=== PATIENT | female | born 1970 | race Caucasian/White ===

== ENCOUNTER 2021-11-27 11:43 | Emergency (ER) | payer BC, SELFPAY ==
--- NOTE | 2021-11-27 11:56 | CT_ITS ---
FINAL REPORT CLINICAL HISTORY: abdominal pain FINDINGS: Axial CT images of the abdomen and pelvis were obtained without intravenous contrast. Coronal reformatted images were also obtained.This study was performed with techniques to keep radiation doses as low as reasonably achievable (ALARA). Individualized dose reduction techniques using automated exposure control or adjustment of mA and/or kV according to the patient's size were employed. Abdomen: There is mild bibasilar atelectasis. The gallbladder is present. There is no evidence of renal stone or hydronephrosis. 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 The liver, spleen and pancreas have an unremarkable, unenhanced appearance. No mass or adenopathy is seen. No inflammatory process is identified. Pelvis: Images of the pelvis reveal no evidence of ureteral dilation or ureteral stone.No mass or abnormal fluid collection is identified. The appendix is normal. IMPRESSION: No acute inflammatory process. Reviewed, Interpreted and Dictated by Aditya Oseguera III, MD Transcribed by Ana Lobo Authenticated and [facility]
[2021-11-27 12:18] VITALS: BP 119/95; PULSE 59; RESP 18; TEMP 36.7; O2SAT 100; BMI 40.0
[2021-11-27 12:26] LABS: Basophils # 0.2 K/mm3 (0-0.2); Basophils % 1.8 % (0.1-2.0); Eosinophils # 0.1 K/mm3 (0.0-0.4); Eosinophils % 0.9 % (0.1-12.0); Hematocrit 37.9 % (37.0-47.0); Hemoglobin 12.4 g/dL (12.2-16.2); Lymphocytes # 2.4 K/mm3 (0.7-4.5); Lymphocytes % 25.8 % (10-50); Mean Corpuscular HGB Conc 32.7 g/dL (31.8-35.4); Mean Corpuscular Hemoglobin 29.9 pg (27.0-31.2); Mean Corpuscular Volume 91.3 fl (81-99); Mean Platelet Volume 7.5 fl (7.4-10.4); Monocytes # 0.4 K/mm3 (0.1-1.0); Monocytes % 4.6 % (1.7-9.3); Neutrophils # 6.1 K/mm3 (1.8-7.8); Neutrophils % 66.9 % (37.0-80.0); Platelet Count 372 K/mm3 (142-424); Red Blood Count 4.15 M/mm3 (4.20-5.40); Red Cell Distribution Width 13.4 % (11.5-17.5); White Blood Count 9.2 K/mm3 (4.8-10.8)
--- NOTE | 2021-11-27 12:26 | PC.NURSE ---
Pt to radiology
[2021-11-27 12:30] LABS: Chloride 108 mmol/L (98-107)
[2021-11-27 12:31] LABS: Potassium 3.6 mmoL/L (3.5-5.1); Sodium 141 mmol/L (136-145)
[2021-11-27 12:33] LABS: Alanine Aminotransferase 29 U/L (12-78); Aspartate Amino Transferase 32 U/L (14-36); Blood Urea Nitrogen 16 mg/dl (7-17); Creatinine Clearance Estimated 123 mL/min (50-200); Estimated Glomerular Filt Rate 75 ml/min (>60); GFR (African American) 91 ML/MIN (>60)
[2021-11-27 12:34] LABS: Albumin Level 3.9 g/dl (3.5-5.0); Albumin/Globulin Ratio 1.3 (1.1-1.8); Alkaline Phosphatase 130 U/L (38-126); Anion Gap 6.6 mEq/L (5-15); Bilirubin,Total 0.5 mg/dl (0.2-1.3); Calcium 8.6 mg/dl (8.4-10.2); Carbon Dioxide 30 mmol/L (22.0-30.0); Globulin 3.1 g/dL (1.3-3.2); Glucose 100 mg/dl (74-100); Lipase 86 U/L (23-300)
--- NOTE | 2021-11-27 12:43 | PC.NURSE ---
pt to restroom to attempt to collect urine speciment
[2021-11-27 12:55] LABS: Microscopic, Urine URINE MICROSCOPIC (MICROSCOPIC)
[2021-11-27 12:58] LABS: Appearance,Urine SL CLOUDY (Clear); Bilirubin,Urine Negative (Negative); Blood, Urine Negative (Negative); Color,Urine DK YELLOW (Yellow); Glucose,Urine (UA) Negative (Negative); Ketones,Urine Negative (Negative); Leukocyte Esterase,Urine Negative (Negative); Nitrate,Urine Negative (Negative); PH,Urine 6.5 (5.0-8.5); Protein,Urine Negative (Negative)
[2021-11-27 13:01] VITALS: BP 140/72; PULSE 53; O2SAT 98
--- NOTE | 2021-11-27 13:04 | HMH.EDABDPAI ---
ED Disposition Clinical Impression: PUD (peptic ulcer disease) Disposition: Home, Self-Care Condition on Discharge: Good Instructions: DI for Acute Abdominal Pain Prescriptions: Promethazine HCl [Phenergan 25mg tab] 25 mg PO BID #12 tab Transmission Status: Pending to [facility] [id number] Referrals: Diana Michelle APRN [Primary Care Provider] - Filippo Garvey MD [Staff Physician] - - Critical Care Critical Care Time: No Attestation: On 11/27/21, the high probability of a clinically significant, sudden or life threatening deterioration of the following system(s) required my full and direct attention, intervention and personal management. The time I documented below is in addition to time spent performing reported procedures but includes the following listed in this critical care notation. Medical Decision Making - Medical Records Medical records reviewed: Yes: I reviewed the patient's medical records. - [place] Inquiry Pt receiving controlled substance: Yes [place] was queried for this patient: No Reason not queried -: Tex system downtime Risks and benefits of using a controlled substance: were discussed with pt by me Vital Signs: 11/27/21 12:18 Temperature 98.1 F Temperature Source Oral Pulse Rate [Left Radial] 59 L Respiratory Rate 18 Blood Pressure [Right Arm] 119/95 H Blood Pressure Mean [Right Arm] 103 Blood Pressure Source [Right Arm] Automatic Cuff Blood Pressure Position [Right Arm] Sitting 02 Sat by Pulse Oximetry 100 Oxygen Delivery Method Room Air - Lab Data Lab Results 11/27/21 12:15: WBC 9.2, RBC 4.15 L, Hgb 12.4, Hct 37.9, MCV 91.3, MCH 29.9, MCHC 32.7, RDW 13.4, Plt Count 372, MPV 7.5, Neut % (Auto) 66.9, Lymph % (Auto) 25.8, [place] % (Auto) 4.6, Eos % (Auto) 0.9, Baso % (Auto) 1.8, Neut # (Auto) 6.1, Lymph # (Auto) 2.4, [place] # (Auto) 0.4, Eos # (Auto) 0.1, Baso # (Auto) 0.2 11/27/21 12:15: Sodium 141, Potassium 3.6, Chloride 108 H, Carbon Dioxide 30, Anion Gap 6.6, BUN 16, Creatinine 0.80, Estimated Creat Clear 123, Estimated GFR 75, Est GFR ( Amer) 91, Glucose 100, Calcium 8.6, Total Bilirubin 0.5, AST 32, ALT 29, Alkaline Phosphatase 130 H, Total Protein 7.0, Albumin 3.9, Globulin 3.1, Albumin/Globulin Ratio 1.3, Lipase 86 11/27/21 12:41: Urine Color Dk yellow, Urine Appearance Sl cloudy, Urine pH 6.5, Ur Specific [place] 1.020, Urine Protein Negative, Urine Glucose (UA) Negative, Urine Ketones Negative, Urine Blood Negative, Urine Nitrate Negative, Urine Bilirubin Negative, Urine Urobilinogen 2.0, Ur Leukocyte Esterase Negative, Urine RBC None, Urine WBC None, Ur Squamous Epith Cells Occasional, Urine Bacteria Trace, Urine Mucus 1+ Result diagrams: 11/27/21 12:15 11/27/21 12:15 Orders (Tests/Meds): ED MEDICATIONS Discontinued Medications Generic Name Dose Route Start Last Admin Trade Name Cristina PRN Reason Stop Dose Admin Sodium Chloride 1,000 mls @ 999 mls/hr 11/27/21 12:00 11/27/21 12:22 Sod Chlor 0.9% 1000ml Bag IV 11/27/21 13:00 999 mls/hr .Q1H1M GUS Administration Morphine Sulfate 4 mg 11/27/21 11:55 11/27/21 12:22 Morphine 4mg/Ml Syringe IV 11/27/21 11:56 4 mg ONCE ONE Administration Ondansetron HCl 4 mg 11/27/21 11:55 11/27/21 12:22 Ondansetron 4mg/2ml Vial IV 11/27/21 11:56 4 mg ONCE ONE Administration - CT Data CT Scan: Abdomen, Pelvis Time Received: 13:[address] Reviewed: Yes: I have reviewed the patient's CT results, I have viewed the radiologist's interpretation Preliminary Findings: Normal/NAD - Reevaluation(s) Time: 13:49 Reevaluation #1: On reevaluation, the patient is feeling much better. Repeat abdominal examination is benign. There is no evidence of acute abdomen or masses. The patient is tolerating oral intake without significant difficulty. Patient has no evidence of AAA. Patient does need repeat abdominal examination in 24 hours by PCP or return to the emergency department. Patient w
[2021-11-27 13:18] LABS: Bacteria,Urine Trace /lpf; Mucus,Urine 1+ /lpf; Squamous Epithelial Cell,Urine Occasional #/hpf (0-5)
[2021-11-27 13:30] VITALS: BP 147/79; PULSE 50; O2SAT 98
[2021-11-27 14:06] VITALS: BP 147/79; PULSE 55; RESP 20; TEMP 36.7; O2SAT 99
== END 2021-11-27 14:07 | disposition home or self-care (01) ==
PROVIDERS: Emergency Provider Emergency Medicine; PCP Nurse Practitioner Family
DX: K27.9 Peptic ulcer, site unspecified, unspecified as acute or chronic, without hemorrhage or perforation (principal)
CPT/HCPCS: 74176; 80053; 81001; 83690; 85025; 96365; 96375; 99284; J2405

== ENCOUNTER 2024-05-18 10:35 | Emergency (ER) | payer OTHER, SELFPAY ==
[2024-05-18 10:36] VITALS: BP 142/78; PULSE 60; RESP 20; TEMP 36.6; O2SAT 100; BMI 39.0
--- NOTE | 2024-05-18 10:38 | ECG_ITS ---
APPROVED REPORT Exam: Resting ECG HR:59 bpm ECG Measurements Heart Rate 59 AXES MN 138 P 53 QRSd 96 QRS 35 QT 385 T 33 QTc 385 Conclusion SINUS BRADYCARDIA BORDERLINE ECG Electronically signed by : JUANA UGALDE, 05/18/2024 15:01:54
[2024-05-18 10:47] VITALS: BP 147/78; PULSE 60; RESP 19; O2SAT 97
[2024-05-18 11:01] VITALS: BP 137/77; PULSE 60; RESP 17; O2SAT 99
--- NOTE | 2024-05-18 11:04 | XR_ITS ---
PROCEDURE INFORMATION: Exam: XR Chest Exam date and time: 05/18/2024 11:10 AM Age: 54 years old Clinical indication: Shortness of breath and other: Chest pain; Additional info: Chest pain, SOA TECHNIQUE: Imaging protocol: Radiologic exam of the chest. Views: 1 view. COMPARISON: CT ABDOMEN PELVIS WO CON 11/27/2021 12:24 PM FINDINGS: Lungs: Lungs are well aerated without a focal area of consolidation. Pleural spaces: Unremarkable. No pleural effusion. No pneumothorax. Heart/Mediastinum: The cardiac silhouette appears enlarged, some of which is magnification related to the AP projection. Bones/joints: Unremarkable. IMPRESSION: Lungs are well aerated without a focal area of consolidation.
--- NOTE | 2024-05-18 11:12 | HMH.EDCP ---
Discharge Plan Disposition Chief Complaint: Chest Pain Prescriptions Prescriptions: New lidocaine 5 % adhesive patch,medicated 1 patch topical DAILY Qty: 15 0RF Rx Instructions: leave on most painful area for up to 12 hrs No Action promethazine 25 MG tablet 25 mg PO BID Qty: 12 0RF Referrals Follow up/Referrals: Neela Castillo APRN [Primary Care Provider] - See instructions Activity Restrictions/Add. Instructions Additional Instructions/Restrictions: At this time it was felt you are safe to be discharged home. If new or worsening symptoms please do not hesitate to return the emergency department. For pain control please take Tylenol 1000 mg and ibuprofen 600 mg every 6 hours as needed with food over the next few days. You complete your lidocaine patch over the area of your chest that hurts which can also help. As discussed if your symptoms are still present after 15 to 20 days please follow-up with your family doctor for continued evaluation. Clinical Impressions Clinical Impression: Acute bronchitis, viral, Chest pain Print Language Print Language: Cuban Discharge ED Provider: Regis Tijerina [facility] General Chief Complaint: Chest Pain Stated Complaint: chest pain Time Seen by Provider: 05/18/24 10:50 History of Present Illness HPI narrative: Patient is a 54-year-old female with no chronic pulmonary comorbidities who presents emergency department for evaluation of shortness of breath and cough. History is obtained by patient at bedside. Over the last 4 days patient has had cough, hoarse voice and shortness of breath. There is chest pain upon deep inspiration. She presented to PCP who diagnosed her with bronchitis and gave her a course of steroids for which her symptoms have been refractory. Adequate p.o. intake and urine output. No other acute complaints at this time. Related Data Previous Rx's ?Medication ?Instructions ?Recorded promethazine 25 mg tablet 25 mg PO BID #12 tabs 11/27/21 lidocaine 5 % topical patch 1 patch topical DAILY muscle pain 05/18/24 #15 ea Allergies Allergy/AdvReac Type Severity Reaction Status Date / Time No Known Allergies Allergy Unknown Uncoded 06/15/17 15:23 [facility] Disclaimer: The information contained in this section may have been updated after the patient was seen, as this information can be updated by other users. Social History Smoking Status: Never smoker alcohol intake: never current occupational status: other Other Medical History Have you received the Flu Vaccine for this season: Yes Have you received the Pneumonia Vaccine: Yes ROS Obtained: Yes Systems reviewed as appropriate & no additional complaints except as documented Physical Exam General General appearance: alert, in no apparent distress and other (Hoarse voice) Head Head exam: atraumatic and normocephalic Eye Eye exam: Present EOMI ENT ENT exam: Present normal oropharynx and mucous membranes moist Neck Neck exam: Present normal inspection Chest Chest inspection: Present normal inspection and symmetric chest wall rise Respiratory Respiratory exam: Present normal lung sounds bilaterally; Absent respiratory distress, wheezes or accessory muscle use Cardiovascular Cardiovascular exam: Present regular rate and normal rhythm Abdominal Exam Abdominal exam: Present soft; Absent tenderness Extremities Exam Extremities exam: Present normal inspection Neurological Exam Neurological exam: Present alert Psychiatric Psychiatric exam: Present normal affect Skin Skin exam: Present warm and dry HEART Score HEART Score HEART Score assessment performed?: Yes History (anamnesis): Slightly suspicious ECG: Normal Age: 45-65 years Risk factors: 1-2 risk factors Troponin: </= normal limit HEART Score: 2 Critical Care Critical Care Time Critical Care Time: No Medical Decision Making [place] Inquiry Pt receiving controlled substance: No Vital Signs Vital Signs: 05/18/24 10:36 05/18/24 10:36 05/18/24 10:47 Temperature 97.9 F Temperature Source Oral Pulse Rate 60 60 Pulse Rate [Right] 60 Respiratory Rate 20 19 Blood Pressure 147/78 H Blood Pressure [Right Arm] 142/78 H Blood Pressure Mean [Right Arm] 99 Blood Pressure Source [Right Arm] Automatic Cuff 02 Sat by Pulse Oximetry 100 97 Oxygen Delivery Method Room Air 05/18/24 11:01 Temperature Temperature Source Pulse Rate 60 Pulse Rate [Right] Respiratory Rate 17 Blood Pressure 137/77 Blood Pressure [Right Arm] Blood Pressure Mean [Right Arm] Blood Pressure Source [Right Arm] 02 Sat by Pulse Oximetry 99 Oxygen Delivery Method Lab Data Labs: Lab Results 05/18/24 10:45: WBC 12.0 H, RBC 4.53, Hgb 13.4, Hct 40.1, MCV 88.5, MCH 29.5, MCHC 33.3, RDW 13.4, Plt Count 380, MPV 7.5, Neut % (Auto) 70.1, Lymph % (Auto) 22.4, [place] % (Auto) 4.6, Eos % (Auto) 2.4, Baso % (Auto) 0.5, Neut # (Auto) 8.4 H, Lymph # (Auto) 2.7, [place] # (Auto) 0.6, Eos # (Auto) 0.3, Baso # (Auto) 0.1, D-Dimer 0.59 H, Sodium 140, Potassium 4.5, Chloride 105, Carbon Dioxide 30, Anion Gap 9.5, BUN 22 H, Creatinine 0.80, Estimated Creat Clear 112, Estimated GFR 74, Est GFR ( Amer) 90, Glucose 88, Calcium 8.7, Total Bilirubin 0.7, AST 25, ALT 16, Alkaline Phosphatase 146 H, Troponin I < 0.01, NT-Pro-B Natriuret Pep 75.6, Total Protein 6.9, Albumin 3.8, Globulin 3.1, Albumin/Globulin Ratio 1.2 05/18/24 11:08: VBG pH 7.32, VBG pCO2 57.5 H, VBG pO2 37.8, VBG HCO3 29.1, VBG Total CO2 30.9 H, VBG O2 Saturation 69.9, VBG Base Excess 3.0 H, VBG Lactic Acid 1.3 05/18/24 10:45 05/18/24 10:45 Response Orders (Tests/Meds): ORDERS Category Date Time Status XR chest portable Stat Exams 05/18/24 11:04 Taken BNP [NT Pro Brain Natriuretic Pep.] Stat Lab 05/18/24 10:45 Completed Complete Blood Count Auto Diff Stat Lab 05/18/24 10:45 Completed Comprehensive Metabolic Panel Stat Lab 05/18/24 10:45 Completed D-Dimer Stat Lab 05/18/24 10:45 Completed HIV (1&2) Antibody Rapid Stat Lab 05/18/24 10:45 Received Hep C Ab with Reflex to RNA Stat Lab 05/18/24 11:30 Ordered Rapid PCR Covid and Flu A/B Stat Lab 05/18/24 11:14 Received Trop I [Troponin I] Stat Lab 05/18/24 10:45 Completed Troponin I Q3H Lab 05/18/24 14:15 Ordered Troponin I Q3H Lab 05/18/24 17:15 Ordered VBG [Venous Blood Gas] Stat RT 05/18/24 11:08 Completed ECG Data Tracing #1: ECG Narrative: Independently interpreted by me rate is 59, rhythm is regular, axis is normal, no ST elevation in anatomical contiguous leads, QTc 385 MDM Narrative Medical Decision Narrative: In summary patient is a 54-year-old female past medical history described above who presents emergency department for evaluation of shortness of breath and cough. Patient is hemodynamically stable nontoxic-appearing upon arrival, afebrile. Differential diagnosis includes viral syndrome, laryngitis, pneumonia, atypical ACS, pulmonary D[place], among others. Initial workup we conducted with hematologic labs, two-view chest x-ray, viral swab. Patient has already had steroids therefore additional interventions were considered but will be deferred. She also has good lung movement without wheezing so I suspect she has dyspnea with pleuritic chest pain. Initial workup reviewed by me, slightly elevated white blood cell count that is unconcerning, no anemia, no thrombocytopenia, D-dimer 0.59 pulmonary embolism is excluded per years criteria, CO2 is slightly elevated but she does not have any significant air trapping may be secondary to hypoventilation. No critical electrolyte abnormalities or LARON. Initial troponin undetectably low. BNP normal. Upon repeat evaluation she is saturating the high 90s on room air without significant respiratory distress, she does have good air movement. Her chest pain is reduced while holding a certain part of her rib cage still with pressure which makes me believe that she has noncardiac chest pain combined with the fact that she has had this pain for longer than 6 hours and her initial troponins undetectably low. Chest x-ray informally interpreted by me, no acute lobar opacities or large pneumothorax. Haziness of the lower lobes bilaterally which is symmetrical which I think is reflective of hypoventilation and body habitus. Patient will be given single dose of Decadron and lidocaine patches for symptom control was given multiple return precautions and verbalized understanding.
[2024-05-18 11:13] LABS: Lactate Venous 1.3 mmol/L (0.4-2.0); VBG HCO3 29.1 mmol/L (23-30); VBG Oxygen Saturation 69.9 % (50-70); VBG PH 7.32 mmol/L (7.31-7.41); VBG PO2 37.8 mmol/L (28-40); VBG Total CO2 30.9 mmol/L (23-27)
[2024-05-18 11:15] LABS: VBG PCO2 57.5 mmol/L (35-51)
[2024-05-18 11:16] LABS: Coronavirus 19, PCR Not Detected (NotDetected); Influenza A, PCR Not Detected (NotDetected); Influenza B, PCR Not Detected (NotDetected)
--- NOTE | 2024-05-18 11:16 | PC.NURSE ---
Dr. Tijerina notified of VBG results.
[2024-05-18 11:20] LABS: Alanine Aminotransferase 16 U/L (12-78); Albumin Level 3.8 g/dl (3.5-5.0); Albumin/Globulin Ratio 1.2 (1.1-1.8); Alkaline Phosphatase 146 U/L (38-126); Anion Gap 9.5 mEq/L (5-15); Aspartate Amino Transferase 25 U/L (14-36); Bilirubin,Total 0.7 mg/dl (0.2-1.3); Blood Urea Nitrogen 22 mg/dl (7-17); Calcium 8.7 mg/dl (8.4-10.2); Carbon Dioxide 30 mmol/L (22.0-30.0); Chloride 105 mmol/L (98-107); Creatinine Clearance Estimated 112 mL/min (50-200); Estimated Glomerular Filt Rate 74 ml/min (>60); GFR (African American) 90 ML/MIN (>60); Globulin 3.1 g/dL (1.3-3.2); Glucose 88 mg/dl (74-100); Potassium 4.5 mmoL/L (3.5-5.1); Sodium 140 mmol/L (136-145); Total Protein,Serum 6.9 g/dl (6.3-8.2)
[2024-05-18 11:24] LABS: D-Dimer 0.59 ug/mL (0.0-0.5)
[2024-05-18 11:27] LABS: Basophils # 0.1 K/mm3 (0-0.2); Basophils % 0.5 % (0.1-2.0); Eosinophils # 0.3 K/mm3 (0.0-0.4); Eosinophils % 2.4 % (0.1-12.0); Hematocrit 40.1 % (37.0-47.0); Hemoglobin 13.4 g/dL (12.2-16.2); Lymphocytes # 2.7 K/mm3 (0.7-4.5); Lymphocytes % 22.4 % (10-50); Mean Corpuscular HGB Conc 33.3 g/dL (31.8-35.4); Mean Corpuscular Hemoglobin 29.5 pg (27.0-31.2); Mean Corpuscular Volume 88.5 fl (81-99); Mean Platelet Volume 7.5 fl (7.4-10.4); Monocytes # 0.6 K/mm3 (0.1-1.0); Monocytes % 4.6 % (1.7-9.3); Neutrophils # 8.4 K/mm3 (1.8-7.8); Neutrophils % 70.1 % (37.0-80.0); Platelet Count 380 K/mm3 (142-424); Red Blood Count 4.53 M/mm3 (4.20-5.40); Red Cell Distribution Width 13.4 % (11.5-17.5)
[2024-05-18 11:29] LABS: NT Pro Brain Natriuretic Pep. 75.6 pg/mL (0-125)
[2024-05-18 11:40] LABS: Troponin I < 0.01 ng/ml (0.00-0.034)
[2024-05-18 12:12] LABS: HIV (1&2) Antibody Rapid NONREACTIVE (NONREACTIVE)
[2024-05-18] MEDS: DEXAMETHASONE 4MG TABLET 10 MG PO (13:01)
[2024-05-18] MEDS: LIDOCAINE 5% TRANSDERMAL PATCH 1 EACH TP (13:02)
[2024-05-18 13:10] VITALS: BP 128/71; PULSE 88; RESP 18; TEMP 36.9; O2SAT 96
== END 2024-05-18 13:11 | disposition home or self-care (01) ==
PROVIDERS: Emergency Provider Emergency Medicine; PCP Nurse Practitioner Family
DX: J20.8 Acute bronchitis due to other specified organisms (principal); R06.02 Shortness of breath; R05.9 Cough, unspecified; R07.9 Chest pain, unspecified; R49.0 Dysphonia
CPT/HCPCS: 71045; 80053; 82803; 83880; 84484; 85025; 85378; 87389; 87636; 93005; 99284; J8540

== ENCOUNTER 2024-06-08 18:28 | Emergency (ER) | payer OTHER, SELFPAY ==
[2024-06-08 19:11] VITALS: BP 169/97; PULSE 63; RESP 18; TEMP 36.5; O2SAT 98; BMI 39.0
--- NOTE | 2024-06-08 19:14 | PC.NURSE ---
Report recieved from September RN Pt awake alert and oriented x4 Skin pink warm and dry. REsp full and easy Speech clear and appropriate. Gait steady
--- NOTE | 2024-06-08 19:17 | ED_ITS ---
Discharge Plan Disposition Patient Disposition: Home, Self-Care Condition: Good Prescriptions Prescriptions: No Action promethazine 25 MG tablet 25 mg PO BID Qty: 12 0RF lidocaine 5 % adhesive patch,medicated 1 patch topical DAILY Qty: 15 0RF Rx Instructions: leave on most painful area for up to 12 hrs Referrals Follow up/Referrals: Neela Castillo APRN [Primary Care Provider] - See instructions Jd Collins DO [Staff Physician] - See instructions Activity Restrictions/Add. Instructions Additional Instructions/Restrictions: I have referred you to orthopedics for further evaluation of your osteoarthritis. Please wear consistent compression stockings to help with your lower extremity edema. Please follow-up with your PCP for further evaluation and investigation for other chronic medical problems. Clinical Impressions Clinical Impression: Arthralgia of both knees Print Language Print Language: Bulgarian Discharge ED Provider: Nathan Bradley General Adult HPI <ROSEMARIE Saldana - Last Filed: 06/08/24 20:53> General Chief complaint: Extremity Problem,Nontraumatic Stated complaint: left arm and leg pain Time Seen by Provider: 06/08/24 19:17 Mode of Arrival: Ambulatory Limitations: No Limitations Description of Symptoms (Recalled from ER Triage Doc. by RN): c/o left arm and leg pain when moving them, pt reports that she got up from bed yesterday and noticed the pain, denies any injury History of Present Illness HPI narrative: Patient presents for evaluation of left knee pain. Patient states that she began having left knee pain yesterday. She denies any trauma. 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 She works at [employer]. Patient also reports some soreness in the left shoulder as well. She denies any fever chills hemoptysis hematochezia melena nausea vomiting diarrhea dyspnea. Related Data Previous Rx's ?Medication ?Instructions ?Recorded promethazine 25 mg tablet 25 mg PO BID #12 tabs 11/27/21 lidocaine 5 % topical patch 1 patch topical DAILY muscle pain 05/18/24 #15 ea Allergies Allergy/AdvReac Type Severity Reaction Status Date / Time No Known Allergies Allergy Unknown Uncoded 06/15/17 15:23 PFSH <ROSEMARIE Saldana - Last Filed: 06/08/24 20:53> PFS Disclaimer: The information contained in this section may have been updated after the patient was seen, as this information can be updated by other users. Social History (Updated 05/18/24 @ 12:14 by Regis Tijerina MD) Smoking Status: Never smoker alcohol intake: never current occupational status: other Travel in the last 8 weeks: None Have you lived/traveled outside US in past 30 days?: No Contact w/someone who lives/traveled outside US past 30 days?: No Exposure to someone with infectious disease in past 14 days?: No Do you have a fever (greater than 100.4 F or 38 C)?: No Have you tested positive for COVID-19: No Exposed to someone with COVID-19 in past 14 days?: No Do you have a sore throat?: No Do you have a cough?: No Do you have any weakness?: No Do you have any diarrhea?: No Are you experiencing any unusual bleeding?: No Do you have any muscle aches/pain?: No Do you have any abdominal pain?: No Are you experiencing loss of taste or smell?: No Other Medical History Have you received the Flu Vaccine for this season: Yes Have you received the Pneumonia Vaccine: Yes <ROSEMARIE Saldana - Last Filed: 06/08/24 20:53> ROS Obtained: Yes Systems reviewed as appropriate & no additional complaints except as documented Physical Exam <ROSEMARIE Saldana - Last Filed: 06/08/24 20:53> General General appearance: alert and in no apparent distress Respiratory Respiratory exam: Present normal lung sounds bilaterally Cardiovascular Cardiovascular exam: Present regular rate Neurological Exam Neurological exam: Present alert and oriented X3 Medical Decision Making <ROSEMARIE Saldana - Last Filed: 06/08/24 20:53> Medical Records Medical records reviewed: Yes I reviewed the patient's medical records. Screening: Per USPSTF and CDC recommendations, given the prevalence of disease in our region, it is our hospital?s policy to screen for HIV and viral Hepatitis for all patients aged 18 and over and those with ongoing risk factors. [place] Inquiry Pt receiving controlled substance: No Vital Signs: 06/08/24 19:11 06/08/24 20:54 Temperature 97.7 F 97.7 F Temperature Source Oral Oral Pulse Rate 68 Pulse Rate [Left Radial] 63 Respiratory Rate 18 20 Blood Pressure 169/97 H Blood Pressure [Right Arm] 169/97 H Blood Pressure Mean [Right Arm] 121 Blood Pressure Source Automatic Cuff Blood Pressure Position Standing 02 Sat by Pulse Oximetry 98 Oxygen Delivery Method Room Air Room Air Orders (Tests/Meds): ED MEDICATIONS Discontinued Medications Generic Name Dose Route Start Last Admin Trade Name Cristina PRN Reason Stop Dose Admin Acetaminophen 1,000 mg 06/08/24 19:50 06/08/24 20:03 Acetaminophen 500mg Tab PO 06/08/24 19:51 1,000 mg ONCE ONE Administration Ibuprofen 800 mg 06/08/24 19:50 06/08/24 20:03 Ibuprofen 400 Mg Tablet PO 06/08/24 19:51 800 mg ONCE ONE Administration ORDERS Category Date Time Status POCUS Point of Care (ER Only) Stat Exams 06/08/24 19:49 Completed XR knee LT 3V Stat Exams 06/08/24 19:49 Completed Medical Decision Narrative: In summary patient is a 54-year-old female who presents to the emergency department for evaluation of atraumatic left knee pain. Patient is hemod ynamically stable upon arrival, afebrile. Physical exam is remarkable for a well-nourished well-developed overweight, with a BMI of 39, 54-year-old female who otherwise is in no acute distress. Patient has tenderness to palpation around the left knee but no palpable cords, no calf tenderness, no erythema edema noted. Patient has full range of motion however it is painful.. Differential diagnosis includes osteoarthritis versus Tracy's cyst versus possible DVT though less likely.. Initial workup will be conducted with plain film x-ray and POCUS. Initial interventions include Tylenol and ibuprofen. Initial workup reviewed by me and my informed interpretation of her plain film x-ray shows significant osteoarthritis however no acute bony abnormality otherwise. POCUS shows no evidence of Tracy's cyst or DVT. Given this patient is appropriate for discharge with referral to orthopedics for her osteoarthritis of her knee, referral back to her PCP for further evaluation of her dependent edema this been present for more than a year and instructions to wear compression stockings. <Nathan Bradley MD - Last Filed: 06/08/24 21:25> Vital Signs: 06/08/24 19:11 06/08/24 20:54 Temperature 97.7 F 97.7 F Temperature Source Oral Oral Pulse Rate 68 Pulse Rate [Left Radial] 63 Respiratory Rate 18 20 Blood Pressure 169/97 H Blood Pressure [Right Arm] 169/97 H Blood Pressure Mean [Right Arm] 121 Blood Pressure Source Automatic Cuff Blood Pressure Position Standing 02 Sat by Pulse Oximetry 98 Oxygen Delivery Method Room Air Room Air Orders (Tests/Meds): ED MEDICATIONS Discontinued Medications Generic Name Dose Route Start Last Admin Trade Name Cristina PRN Reason Stop Dose Admin Acetaminophen 1,000 mg 06/08/24 19:50 06/08/24 20:03 Acetaminophen 500mg Tab PO 06/08/24 19:51 1,000 mg ONCE ONE Administration Ibuprofen 800 mg 06/08/24 19:50 06/08/24 20:03 Ibuprofen 400 Mg Tablet PO 06/08/24 19:51 800 mg ONCE ONE Administration ORDERS Category Date Time Status POCUS Point of Care (ER Only) Stat Exams 06/08/24 19:49 Completed XR knee LT 3V Stat Exams 06/08/24 19:49 Completed Medical Decision Narrative: In summary patient is a 54-year-old female who presents to the emergency department for evaluation of atraumatic left knee pain. Patient is hemo dynamically stable upon arrival, afebrile. Physical exam is remarkable for a well-nourished well-developed overweight, with a BMI of 39, 54-year-old female who otherwise is in no acute distress. Patient has tenderness to palpation around the left knee but no palpable cords, no calf tenderness, no erythema edema noted. Patient has full range of motion however it is painful.. Differential diagnosis includes osteoarthritis versus Tracy's cyst versus possible DVT though less likely.. Initial workup will be conducted with plain film x-ray and POCUS. Initial interventions include Tylenol and ibuprofen. Initial workup reviewed by me and my informed interpretation of her plain film x-ray shows significant osteoarthritis however no acute bony abnormality otherwise.. Upon repeat evaluation [patient had acceptable resolution of symptoms, had persistent pain for which additional interventions were conducted (describe interventions), tolerated p.o., was ambulatory, etc.]. Given this [patient is appropriate for discharge at this time and will be discharged with a prescription for... The case was discussed with hospital medicine regarding management and they will admit the patient their service for continued evaluation at this time... Etc.] I did a limited ultrasound of the patient's popliteal region as well as DVT limited ultrasound which was unremarkable no evidence of Tracy's cyst or obvious DVT. Patient's had chronic edema for the last year she is concerned about diabetes but she has had not had any new or different symptoms she has been advised to follow-up with primary care doctor regarding this. She did have an x-ray of her knee which showed significant osteoarthritis no significant effusions or bony abnormalities such as fracture dislocation etc. she has been a dvised to follow-up with her orthopedic surgeon for possible joint injections and evaluation for downstream MRI versus joint placement etc. Overall symptoms are most likely consistent with osteoarthritis were not worried about a septic joint acute neurovascular abnormality as she has normal neurologic function specifically sensory function and arterial pulses distally. She has been discharged in stable improved condition with advice to follow the primary care doctor and orthopedic surgery. Procedures <Nathan Bradley MD - Last Filed: 06/08/24 21:25> Miscellaneous Procedure Procedure Performed: Structures identified Common femoral veins and popliteal veins bilaterally Findings complete compression of left common femoral veins and left popliteal veins with normal augmentation Impression no evidence of left lower extremity DVT The study was performed by me and I personally interpreted all images and videos based on my clinical judgment these images were adequate and did not necessitate further imaging Limited soft tissue ultrasound Indication: Knee pain Identified structures: Location: Left popliteal fossa Findings: No significant soft tissue abnormalities no evidence of Tracy's cyst Impression: Unremarkable soft tissue ultrasound of the left popliteal fossa Images were saved to permanent archive The study was technically adequate Soft Tissue CPT Codes: CPT Neck: 14865-24 CPT Upper extremity: 69287-77 CPT Axilla: 41116-56 CPT Chest wall: 59390-67 CPT Breast: 58037-66-TX/LT (complete), 18417-29-LD/LT (limited), CPT Upper Back: 45031-59 CPT Lower Back: 83044-02 CPT Abdominal Wall: 91863-40 CPT Pelvic Wall: 82407-56 CPT Lower Extremity: 17492-69 CPT Other Soft Tissue: 03737-02 This study was performed by ar, and I personally interpreted all images/videos. Based on my clinical judgement, these images were adequate and did not necessi monteiro further imaging. Critical Care <ROSEMARIE Saldana - Last Filed: 06/08/24 20:53> Critical Care Time Critical Care Time: No
--- NOTE | 2024-06-08 19:49 | XR_ITS ---
PROCEDURE INFORMATION: Exam: XR Left Knee Exam date and time: 06/08/2024 7:53 PM Age: 54 years old Clinical indication: Pain; Knee; Left; Additional info: Posterior knee pain no trauma TECHNIQUE: Imaging protocol: Radiologic exam of the left knee. Views: 3 views. COMPARISON: No relevant prior studies available. FINDINGS: Bones/joints: Normal. No fracture evident Soft tissues: Normal. IMPRESSION: No acute findings.
[2024-06-08] MEDS: IBUPROFEN 400 MG TABLET 800 MG PO (20:03)
[2024-06-08] MEDS: ACETAMINOPHEN 500MG TAB 1000 MG PO (20:03)
--- NOTE | 2024-06-08 20:04 | PC.NURSE ---
Pt in xray
--- NOTE | 2024-06-08 20:09 | PC.NURSE ---
Pt back from xray ambulatory Medicated for pain. awaiting results
[2024-06-08 20:54] VITALS: BP 169/97; PULSE 68; RESP 20; TEMP 36.5
== END 2024-06-08 20:59 | disposition home or self-care (01) ==
PROVIDERS: Emergency Provider Student in an Organized Health Care Education/Training Program; PCP Nurse Practitioner Family
DX: M25.562 Pain in left knee (principal); M79.602 Pain in left arm; M79.605 Pain in left leg; M25.512 Pain in left shoulder
CPT/HCPCS: 73562; 99283

== ENCOUNTER 2025-05-08 18:13 | Emergency (ER) | payer OTHER, SELFPAY ==
[2025-05-08 18:14] VITALS: BP 134/75; PULSE 60; RESP 15; TEMP 36.6; O2SAT 98; BMI 45.8
--- NOTE | 2025-05-08 18:15 | ECG_ITS ---
APPROVED REPORT Exam: Resting ECG HR:59 bpm ECG Measurements Heart Rate 59 AXES RI 165 P 48 QRSd 94 QRS 37 QT 385 T 17 QTc 383 Conclusion SINUS BRADYCARDIA LOW QRS VOLTAGE IN PRECORDIAL LEADS [QRS DEFLECTION < 1.0 mV IN CHEST LEADS] BORDERLINE ECG UNCONFIRMED REPORT Sinus bradycardia. No ST elevation or depression. QTc normal at 383 Electronically signed by : SIGIFREDO CHRISTINE, 05/12/2025 07:14:50
[2025-05-08 18:18] VITALS: BP 134/75; PULSE 62; RESP 14; O2SAT 97
--- NOTE | 2025-05-08 18:24 | XR_ITS ---
PROCEDURE INFORMATION: Exam: XR Chest Exam date and time: 05/08/2025 6:29 PM Age: 55 years old Clinical indication: Shortness of breath; Additional info: Short of breath TECHNIQUE: Imaging protocol: Radiologic exam of the chest. Views: 1 view. COMPARISON: CR XR CHEST PORTABLE 05/18/2024 11:10 AM FINDINGS: Lungs: Low lung volumes with associated vascular crowding and bibasilar atelectasis. Pleural spaces: Unremarkable. No pleural effusion. No pneumothorax. Heart/Mediastinum: Unremarkable. No cardiomegaly. Bones/joints: Unremarkable. IMPRESSION: No acute findings.
--- NOTE | 2025-05-08 18:25 | ED_ITS ---
<Statement entered by Noah Mir MD - 05/09/25 02:13> I was consulted by the ASHLEY, and we discussed the complexity of the problems being addressed. I approve the treatment and management plan for this patient's care in the emergency department, thus performing a substantive portion of the medical decision making. Noah Mir MD Discharge Plan Disposition Chief Complaint: Chest Pain Prescriptions Prescriptions: No Action promethazine 25 MG tablet 25 mg PO BID Qty: 12 0RF lidocaine 5 % adhesive patch,medicated 1 patch topical DAILY Qty: 15 0RF Rx Instructions: leave on most painful area for up to 12 hrs Referrals Follow up/Referrals: Neela Castillo APRN [Primary Care Provider, Medical] - See instructions Print Language Print Language: Slovak Discharge ED Provider: Noah Mir [facility] General Chief Complaint: Chest Pain Stated Complaint: Chest pain Time Seen by Provider: 05/08/25 18:24 Mode of Arrival: Ambulatory Source of Information: Patient Description of Symptoms (Recalled from ER Triage Doc. by RN): pt presents to the ED with chest pian. pt reports she started having chest pain today and went to her PCP and had a EKG done. pt reports that her PCP requested that she needed to come to the ED. pt states that she has had a cough and pain with inspiration. pt states that she had vomiting last week. pt states that she has had abdominal pain over the past few days. History of Present Illness HPI narrative: 55-year-old female presents to the ED today with complaint of chest pain that started Wednesday with shortness of air due to the pain. She has had nausea and vomiting last week as well. She also has had a cough and pain with inspiration. Patient did not tell me that she has had any abdominal pain but she did tell nursing staff that she has had abdominal pain over the past few days with nausea. Patient is very anxious. Related Data Previous Rx's ?Medication ?Instructions ?Recorded promethazine 25 mg tablet 25 mg PO BID #12 tabs lidocaine 5 % topical patch 1 patch topical DAILY musc le pain 05/18/24 #15 ea Allergies Allergy/AdvReac Type Severity Reaction Status Date / Time No Known Allergies Allergy Unknown Uncoded 06/15/17 15:[address] [facility] Disclaimer: The information contained in this section may have been updated after the patient was seen, as this information can be updated by other users. Social History Smoking Status: Never smoker alcohol intake: never current occupational status: other Travel in the last 8 weeks?: None Have you lived/traveled outside US in past 30 days?: No Contact w/someone who lives/traveled outside US past 30 days?: No Exposure to someone with infectious disease in past 14 days?: No Do you have a fever (greater than 100.4 F or 38 C)?: No Have you tested positive for COVID-19?: No Exposed to someone with COVID-19 in past 14 days?: No Do you have a sore throat?: No Do you have a cough?: No Do you have any weakness?: No Do you have any diarrhea?: No Are you experiencing any unusual bleeding?: No Do you have any muscle aches/pain?: No Do you have any abdominal pain?: No Are you experiencing loss of taste or smell?: No Other Medical History Have you received the Flu Vaccine for this season: Yes Have you received the Pneumonia Vaccine: Yes ROS Obtained: Yes Systems reviewed as appropriate & no additional complaints except as documented Constitutional Constitutional: Reports as per HPI Physical Exam General General appearance: alert and anxious Head Head exam: normocephalic Eye Eye exam: Present PERRL ENT ENT exam: Present mucous membranes moist Neck Neck exam: Present trachea midline Chest Chest inspection: Present symmetric chest wall rise Respiratory Respiratory exam: Present normal lung sounds bilaterally Cardiovascular Cardiovascular exam: Present regular rate, normal rhythm, normal heart sounds, +S1 and +S2 Abdominal Exam Abdominal exam: Present soft and normal bowel sounds Abdominal tenderness: Present diffuse Extremities Exam Extremities exam: Present normal inspection, full ROM and normal capillary refill Back Exam Back exam: Present full ROM Neurological Exam Neurological exam: Present alert and oriented X3 Psychiatric Psychiatric exam: Present normal mood, agitated and anxious Skin Skin exam: Present warm and dry HEART Score HEART Score HEART Score assessment performed?: Yes History (anamnesis): Slightly suspicious ECG: Normal Age: 45-65 years Risk factors: 1-2 risk factors Troponin: </= normal limit HEART Score: 2 Critical Care Critical Care Time Critical Care Time: No Medical Decision Making [place] Inquiry Pt receiving controlled substance: No [place] was queried for this patient: No Vital Signs Vital Signs: 05/08/25 18:14 05/08/25 18:14 05/08/25 18:18 Temperature 98 F 98 F Temperature Source Oral Oral Pulse Rate 60 62 Pulse Rate [Right] 60 Respiratory Rate 15 15 14 Blood Pressure 134/75 134/75 Blood Pressure [Right Arm] 134/75 Blood Pressure Mean 99 Blood Pressure Mean [Right Arm] 94 Blood Pressure Source Automatic Cuff Blood Pressure Source [Right Arm] Automatic Cuff Blood Pressure Position Supine Blood Pressure Position [Right Arm] Supine 02 Sat by Pulse Oximetry 98 98 97 Oxygen Delivery Method Room Air Room Air 05/08/25 18:26 05/08/25 18:31 Temperature Temperature Source Pulse Rate 63 65 Pulse Rate [Right] Respiratory Rate 13 Blood Pressure 149/79 H Blood Pressure [Right Arm] Blood Pressure Mean 100 Blood Pressure Mean [Right Arm] Blood Pressure Source Blood Pressure Source [Right Arm] Blood Pressure Position Blood Pressure Position [Right Arm] 02 Sat by Pulse Oximetry 99 Oxygen Delivery Method Lab Data Labs: Lab Results 05/08/25 18:24: WBC 10.9 H, RBC 4.61, Hgb 13.5, Hct 40.3, MCV 87.4, MCH 29.3, MCHC 33.5, RDW 12.4, Plt Count 369, MPV 9.5, Neut % (Auto) 62.2, Lymph % (Auto) 30.1, [place] % (Auto) 5.6, Eos % (Auto) 1.4, Baso % (Auto) 0.4, Neut # (Auto) 6.8, Lymph # (Auto) 3.3, [place] # (Auto) 0.6, Eos # (Auto) 0.2, Baso # (Auto) 0.0, PT 10.3, INR 0.92, APTT 25.9, D-Dimer 0.77 H, Sodium 135 L, Potassium 4.5, Chloride 104, Carbon Dioxide 27, Anion Gap 8.5, BUN 24 H, Creatinine 0.90, Estimated Creat Clear 42, Estimated GFR 65, Est GFR ( Amer) 78, Glucose 87, Calcium 9.3, Magnesium 2.0, Total Bilirubin 0.7, AST 34, ALT 17, Alkaline Phosphatase 131 H, Troponin I < 0.01, NT-Pro-B Natriuret Pep 111, Total Protein 8.1, Albumin 4.3, Globulin 3.8 H, Albumin/Globulin Ratio 1.1, Lipase 106, HCV Ab LETICIA w/Rflx PCR Qn Negative, HIV Ag/Ab Combo Qual Negative 05/08/25 18:27: VBG pH 7.37, VBG pCO2 43.5, VBG pO2 49.0 H, VBG HCO3 24.4, VBG Total CO2 25.7, VBG O2 Saturation 84.1 H, VBG Base Excess -1.0, VBG Lactic Acid 1.0 05/08/25 18:31: SARS-CoV-2 (PCR) Not detected, Influenza A Untype (PCR) Not detected, Influenza Type B (PCR) Not detected 05/08/25 18:24 05/08/25 18:24 Response Orders (Tests/Meds): ED MEDICATIONS Generic Name Dose Route Start Last Admin Trade Name Freq PRN Reason Stop Dose Admin Sodium Chloride 8 ml 05/08/25 18:24 Sodium Chloride 0.9% 10ml Vial IV 06/07/25 18:23 NEEDED PRN dilute pepcid Discontinued Medications Generic Name Dose Route Start Last Admin Trade Name Freq PRN Reason Stop Dose Admin Albuterol/Ipratropium 9 ml 05/08/25 18:24 05/08/25 18:40 Ipratropium/Albuterol 3 Ml Neb IH 05/08/25 18:25 9 ml ONCE ONE Administration Aspirin 325 mg 05/08/25 18:24 05/08/25 18:44 Aspirin 325mg Tablet PO 05/08/25 18:25 325 mg ONCE ONE Administration Famotidine 20 mg 05/08/25 18:24 05/08/25 18:47 Famotidine 20mg/2ml Vial IV 05/08/25 18:25 20 mg ONCE ONE Administration Magnesium Sulfate 2 gm in 50 mls @ 50 mls/hr 05/08/25 18:24 05/08/25 18:41 Magnesium Sulfate 2gm/50ml Premix IV 05/08/25 19:23 50 mls/hr ONCE ONE Administration Iopamidol 70 ml 05/08/25 19:14 05/08/25 19:15 Iopamidol-370 (76%);100ml Bottle IV 05/08/25 19:15 70 ml ONCE ONE Administration Sodium Chloride 10 ml 05/08/25 19:14 05/08/25 19:15 Sodium Chloride 0.9% 10ml Syr (Rad Only) IV 05/08/25 19:15 10 ml ONCE ONE Administration Sodium Chloride 50 ml 05/08/25 19:14 05/08/25 19:14 0.9 % Sodium Chloride 50 Ml Vial IV 05/08/25 19:15 50 ml ONCE ONE Administration ORDERS Category Date Time Status CT abdomen pelvis w con Stat Cat Scan 05/08/25 18:29 Completed CTA Chest [CT angio chest PE protocol] Stat Cat Scan 05/08/25 18:37 Completed Chest XR -- portable [XR chest portable] Stat Exams 05/08/25 18:24 Completed BNP [NT Pro Brain Natriuretic Pep.] Stat Lab 05/08/25 18:24 Completed CBC [Complete Blood Count Auto Diff] Stat Lab 05/08/25 18:24 Completed Comprehensive Metabolic Panel Stat Lab 05/08/25 18:24 Completed D-Dimer Stat Lab 05/08/25 18:24 Completed HIV Combo Stat Lab 05/08/25 18:24 Completed Hepatitis C Ab Qual. W/ RFX Stat Lab 05/08/25 18:24 Completed Lactate Venous Stat Lab 05/08/25 18:27 Ordered Lipase Stat Lab 05/08/25 18:24 Completed Magnesium Stat Lab 05/08/25 18:24 Completed PT INR [Prothrombin Time INR] Stat Lab 05/08/25 18:24 Completed PTT [Activated Partial Thrombo Time] Stat Lab 05/08/25 18:24 Completed Rapid PCR Covid and Flu A/B Stat Lab 05/08/25 18:31 Completed Trop I [Troponin I] Stat Lab 05/08/25 18:24 Completed Troponin I Q3H Lab 05/08/25 21:30 Ordered Troponin I Q3H Lab 05/09/25 00:30 Ordered Venous Blood Gas Stat RT 05/08/25 18:27 Completed MDM Narrative Medical Decision Narrative: patient is a 55-year-old presenting to the emergency department for evaluation of chest pain, shortness of breath, nausea. Patient is hemodynamically stable and nontoxic-appearing upon arrival, afebrile. Differential diagnosis includes ACS, CAD, pneumonia, among others. Workup will be conducted with hematologic labs, specific imaging, provocative tests. Initial inventions include crystalloid bolus, analgesics, antibiotics. Initial workup reviewed by ks hematologic labs are remarkable for White count 10.9 minimally elevated, normal H&H, D-dimer 0.77 which is 4 years criteria low likelihood of VTE, sodium 135, BUN 24 creatinine 0.90, troponin less than 0.01, chest pain started on Wednesday so no need to do a second troponin. Imaging, we did a CTA which showed no PE also did a CT abdomen pelvis which showed no acute intra-abdominal or intrapelvic injury but it did show endometrial thickness which I talked to patient about and we discussed following up with [employer]. Patient understood. Also discussed with patient following up with her PCP and discussing cardiology follow-up if needed. Patient is safe for discharge home.
[2025-05-08 18:26] VITALS: PULSE 63
--- OUTSIDE RECORDS SUMMARY | 2025-05-08 18:27 | XMS_ITS | Clinical Summary ---
Author Organization [facility] Address [address] [place] [address] Phone Care Team Providers Care Control Supervisor Name Role Phone Declan Torres MD Primary Care Provider + [phone] Social History Tobacco Use Types Packs/Day Years Used Date Smoking Tobacco: Never Assessed Comments Unknown Sex and Gender Information Value Date Recorded Sex Assigned at Not on file Legal Sex Female 12:18 AM EDT Gender Identity Not on file Sexual Orientation Not on file Plan of Treatment Health Maintenance Due Date Last Done Comments Annual Wellness Exam 01/02/1971 DTaP/TDaP/Td (1 - Tdap) 01/02/1987 Hepatitis B Vaccine (1 of 3 - 19+ 3-dose series) 01/02/1987 Cervical Cancer Screening 01/02/1989 Pap Smear 01/02/1989 HPV/Pap Cotest 01/02/1998 Cologuard 01/02/2013 Colon Cancer Screening 01/02/2013 Colonoscopy 01/02/2013 FIT 01/02/2013 Sigmoidoscopy 01/02/2013 Virtual Colonography 01/02/2013 Pneumococcal Vaccine 50+ (1 of 1 - PCV) 01/02/2018 Zoster (1 of 2) 01/02/2018 Breast Cancer Screening 10/30/2023 10/30/19, 05/10/2014, 04/14/2012, Additional history exists COVID-19 Vaccine ( season) 2025 07/08/2021, 11/22/2020, 10/25/2020 Influenza Vaccine (#1) 2025 Meningococcal B Vaccine Aged Out No l onger eligible based on patient's age to complete this topic Procedures Procedure Name Priority Date/Time Associated Diagnosis Comments MM MAMMO DIGITAL MICHAEL SCREEN BILAT Routine 10/29/2021 2:06 PM EDT Encounter for screening mammogram for malignant neoplasm of breast from Last 3 Months or Most Recently Relevant to Health Maintenance Results * MM MAMMO DIGITAL MICHAEL SCREEN BILAT (10/29/2021 2:06 PM EDT) Anatomical Region Laterality Modality Breast Bilateral Mammography 10/30/2021 7:43 AM EDT Impressions 10/30/2021 7:43 AM EDT Negative ([id number]) ~ RECOMMENDATION: Routine screening mammogram in 1 year. ~ DISCLAIMER * Any patient with a palpable abnormality, unexplained by breast imaging, should be managed on clinical basis by the attending physician. * Breast imaging has a false negative rate of 15%. * The patient was notified by mail of the results of this examination. *The patient's information was entered into a reminder system with a target due date for the next mammogram, in accordance with the [employer] and the Society of Breast Imaging recommendations. Narrative 10/30/2021 7:43 AM EDT Procedure:MM MAMMO DIGITAL MICHAEL SCREEN BILAT ~ Reason for exam: screening, asymptomatic. Z12.31-Encounter for screening mammogram for malignant neoplasm of [id number] ~ MM MAMMO DIGITAL MICHAEL SCREEN BILAT Bilateral CC and MLO view(s) were taken. There are scattered fibroglandular densities. Prior study comparison: Compared with prior studies the most recent being 05/10/14, 04/14/12 No mammographic evidence of malignancy. ~ Procedure Note Kang Wagner MD - 10/30/2021 Procedure:MM MAMMO DIGITAL MICHAEL SCREEN BILAT ~ Reason for exam: screening, asymptomatic. Z12.31-Encounter for screening mammogram for malignant neoplasm of [id number] ~ MM MAMMO DIGITAL MICHAEL SCREEN BILAT Bilateral CC and MLO view(s) were taken. There are scattered fibroglandular densities. Prior study comparison: Compared with prior studies the most recentbeing 05/10/14, 04/14/12 No mammographic evidence of malignancy. ~ IMPRESSION: Negative ([id number]) ~ RECOMMENDATION: Routine screening mammogram in 1 year. ~ DISCLAIMER * Any patient with a palpable abnormality, unexplained by breast imaging, should be managed on clinical basis by the attending physician. * Breast imaging has a false negative rate of 15%. * The patient was notified by mail of the results of this examination. *The patient's information was entered into a reminder system with atarget due date for the next mammogram, in accordance with the [employer] and the Society of Breast Imaging recommendations. us Carlito Carlton MD IMG MAMMOGRAPHY ORDERABLES Priya l Result from Last 3 Months or Most Recently Relevant to Health Maintenance Insurance [facility] PPO Care Teams Control Supervisor Relationship Specialty Start Date End Date Declan Torres MD [address] [place] [id number] PCP - General 03/17/10
--- OUTSIDE RECORDS SUMMARY | 2025-05-08 18:27 | XMS_ITS | Data Portability ---
Author Organization [facility] Address [address] [place] [id number] Assessment No assessment recorded. Plan of Treatment Reminders Order Date Submit Date Provider Last Modified By Organization Details Last Modified Time Details Appointments Establish ed Patient 20 2024 05:00P Serjio Castillo APRN Not available Not available Not available Lab rapid flu (A+B) 2023 024 [facility], [address] [place] [address], [id number], 06/19/2024 16:21:46 rapid SARS CoV + SARS CoV 2 Ag, QL IA, respirato ry specimen 2023 024 [facility], [address] [place] [address], [phone], 06/19/2024 16:21:46 rapid flu (A+B) 2023 024 [facility], [address] [place] [address], [id number], 05/11/2024 09:23:42 rapid SARS CoV + SARS CoV 2 Ag, QL IA, respirato ry specimen 2023 024 [facility], [address] [place] [address], [id number], 05/11/2024 09:23:42 rapid strep group A, throat 2023 024 [email or web address] [facility], [address] [place] [address], [phone], 05/11/2024 09:23:42 Referral None recorded. Procedures None recorded. Surgeries None recorded. Imaging electroca rdiogram 2024 025 [facility], [address] [place] [address], [phone], 05/08/2025 18:19:58 electroca rdiogram 2023 024 [email or web address] [facility], [address] [place] [address], [address], 05/18/2024 10:04:31 Medication Orders Flonase Allergy Relief 50 mcg/actua tion nasal spray,karsten pension 2024 0[address] [facility] [id number], [address] [facility] , [place], [address], 05/08/2025 17:05:19 Zithromax Z-Thad 250 mg tablet 2023 [address] [facility] [id number], [address] [facility] , [place], [address], 07/13/2024 08:46:54 prednison e 20 mg tablet 2023 [address] [facility] [id number], [address] [facility] , [place], [address], 07/13/2024 08:46:45 albuterol sulfate HFA 90 mcg/actua tion aerosol inhaler 2023 [address] [facility] [id number], [address] [facility] , [place], [address], 07/13/2024 08:51:32 albuterol sulfate 2.5 mg/3 mL (0.083 %) solution for nebulizat ion 2023 024 dilma Not available 07/13/2024 08:51:28 prednison e 20 mg tablet 2023 024 [facility] [id number], [address] [facility] [place], [address], 07/13/2024 08:46:43 albuterol sulfate HFA 90 mcg/actua tion aerosol inhaler 2023 024 [facility] [id number], [address] [facility] [place], [address], 07/13/2024 08:51:30 Patient TargetsNo targets recorded. Patient InstructionsNo instructions recorded. Reason for Referral None Reported. Results Created Date Observation Date Name Description Value Unit Range Abnormal Flag Note LastModifiedBy Organization Detail LastModifiedTime 05/11/20 24 05/11/2024 rapid SARS CoV + SARS CoV 2 Ag, QL IA, respi rator y speci men SARS CoV antigen Negati ve Not Available [address], [address], 05/11/2024 08:51:01 05/11/20 24 05/11/2024 rapid flu (A+B) Flu negati ve Not Available [address], [address], 05/11/2024 08:50:56 05/11/20 24 05/11/2024 rapid flu (A+B) Type Both A & B Not Available [address], [address], 05/11/2024 08:50:56 05/11/20 24 05/11/2024 rapid strep group A, throa t Strep negati ve Not Available [facility] [address], [address], 05/11/2024 08:50:31 05/11/2005/11/2024 rapid strep group A, throa t Culture No Not Available [address], [address], 05/11/2024 08:50:31 06/19/20 24 06/19/2024 rapid SARS CoV + SARS CoV 2 Ag, QL IA, respi rator y speci men SARS CoV antigen Negati ve Not Available [address], [address], 06/19/2024 15:14:17 06/19/20 24 06/19/2024 rapid flu (A+B) Flu negati ve Not Available [address], [address], 06/19/2024 15:14:12 06/19/20 24 06/19/2024 rapid flu (A+B) Type Both A & B Not Available [address], [address], 06/19/2024 15:14:12 05/18/20 24 05/18/2024 elect rocar diogr am No observ ation record ed. efryman [address], [address], 05/18/2024 10:26:51 05/18/20 24 05/18/2024 elect rocar diogr am No observ ation record ed. [email or web address] [address], [address], 06/14/2024 08:54:24 05/18/20 24 05/18/2024 XR, chest , 2 view No observ ation record ed. [facility] [address], [place], [address], 05/18/2024 13:27:28 05/18/20 24 05/18/2024 elect rocar diogr am No observ ation record ed. [facility] [address], [place], [address], 05/18/2024 15:22:25 06/08/20 24 06/08/2024 XR, knee, 3 view No observ ation record ed. [facility] [address], [place], [address], 06/12/2024 08:44:56 05/08/20 25 05/08/2025 elect rocar diogr am No observ ation record ed. [address], [address], 05/08/2025 18:20:13 Result Notes None recorded. Problems Name Problem SNOMED Code Status Onset Date Resolution Date Notes Provider Name and Address Organization Details Recorded Time Migraine [id number] Active 016 Hanane Rowley RN [address], [place], [address] , [place] - [facility] 05/05/2016 15:13:54 Problem Notes None recorded. Procedures Surgical History Date Name Laterality Status Provider Name and Address Organization Details Recorded Time 4 Nebulizer tx completed Neela Castillo APRN [address], [place], [address], [place] - [facility] 06/19/2024 16:23:53 0 Systolic B/P less than 130 mm Hg completed Crystal Shelly [place] - [facility] 07/18/2019 10:09:28 0 Diastolic B/P less than 80 mm Hg completed Crystal Shelly [place] - [facility] 07/18/2019 10:09:31 Tubal Ligation completed Hanane Rowley RN [address], [place], [address], [place] - [facility] 05/05/2016 15:17:25 Imaging Results None recorded. Procedure Notes None recorded. Medical Equipment None Reported. Allergies No known drug allergies Medications Name Sig Start Date Stop Date Status Note LastModified by Organization Details LastModified Time promethaz ine-DM 6.25 mg-15 mg/5 mL oral syrup Take 5 mL every 6 hours by oral route as needed. 07/18 completed Not Available Not Available Not Available Zyrtec-D 5 mg-120 mg tablet,ex tended release take 1 tablet by oral route 2 times per day for 10 days 11/07 completed Zyrtec-D 5-120 mg oral tablet extended release 12 hr;Presc ribe Status: Prescrib ed on: 07/15/19 16 12:08PM; Disconti nued Status: Disconti nued on: 11/08/19 16 1:00PM;U ser: tara reis;Est. Completi on: 07/25/19 16;Pharm acyVchristiane ied: 07/15/19 16 12:08PM Not Available Not Available Not Available albuterol sulfate 2.5 mg/3 mL (0.083 %) solution for nebulizat ion Inhale 3 mL 3 times a day by nebuliza tion route. 07/13 completed Not Available Not Available Not Available Drisdol 1,250 mcg (50,000 unit) capsule take 1 capsule (50,000 unit) by oral route once weekly 03/05 completed Drisdol 50,000 unit oral capsule; Recorded Status: Recorded on: 09/12/19 15 10:59AM; Disconti nued Status: Disconti nued on: 03/05/20 15 1:28PM;U ser: [email or web address] Not Available Not Available Not Available ibuprofen 800 mg tablet take 1 tablet by oral route every 8 hours as needed 04/14 completed Not Available Not Available Not Available fluconazo le 150 mg tablet take 1 tablet (150 mg) by oral route once for 1 days; repeat in 7 days 03/14 completed Not Available Not Available Not Available benzonata te 200 mg capsule Take 1 capsule 3 times a day by oral route as needed. 07/09 completed Not Available Not Available Not Available meloxicam 15 mg tablet take 1 tablet (15 mg) by oral route once daily 03/05 completed meloxica m 15 mg oral tablet;R ecorded Status: Recorded on: 09/12/19 10:59AM; Disconti nued Status: Disconti nued on: 03/05/20 15 1:28PM;U ser: [email or web address] Not Available Not Available Not Available prednison e 20 mg tablet Take 1 tablet twice a day by oral route for 5 days. 07/13 completed Not Available Not Available Not Available Zithromax Z-Thad 250 mg tablet TAKE 2 TABLETS (500 MG) BY ORAL ROUTE ONCE DAILY FOR 1 DAY THEN 1 TABLET (250 MG) BY ORAL ROUTE ONCE DAILY FOR 4 DAYS 07/13 completed Not Available Not Available Not Available sumatript an 50 mg tablet Take 1 tablet as needed by oral route. 03/14 completed Not Available Not Available Not Available metronida zole 500 mg tablet take 4 tablet (500 mg) by oral route once for 1 days 05/05 completed Not Available Not Available Not Available ciproflox acin 500 mg tablet take 1 tablet (500 mg) by oral route 2 times per day for 10 days 11/01 completed Not Available Not Available Not Available sulfameth oxazole 800 mg-trimet hoprim 160 mg tablet Take 1 tablet every 12 hours by oral route for 7 days. 10/22 completed Not Available Not Available Not Available tramadol 50 mg tablet take 1 tablet (50 mg) by oral route every 6 hours as needed 03/14 completed Not Available Not Available Not Available ketorolac 30 mg/mL (1 mL) injection solution Inject 2 mL every 6 hours by intramus cular route. 04/14 completed Not Available Not Available Not Available acyclovir 800 mg tablet 11/01 completed Not Available Not Available Not Available Depo-Medr ol 80 mg/mL suspensio n for injection Take 1 mL by injectio n route. 07/18 completed Not Available Not Available Not Available prednison e 10 mg tablets in a dose pack 08/05 completed Not Available Not Available Not Available Tessalon Perles 100 mg capsule take 1 capsule (100 mg) by oral route 2 times per day for 10 days 12/08 completed Not Available Not Available Not Available ceftriaxo ne 1 gram solution for injection Take 1 g by injectio n route. 08/05 completed Not Available Not Available Not Available amoxicill in 875 mg tablet 07/18 completed Not Available Not Available Not Available cephalexi n 500 mg capsule take 1 capsule (500 mg) by oral route every 12 hours for 10 days 10/22 completed Not Available Not Available Not Available tobramyci n 0.3 % eye drops 07/18 completed Not Available Not Available Not Available nystatin 100,000 unit/gram topical cream APPLY TO THE AFFECTED AREA(S) BY TOPICAL ROUTE 2 TIMES PER DAY for 7 days 03/14 completed Not Available Not Available Not Available lansopraz ole 30 mg capsule,d elayed release take 1 capsule (30 mg) by oral route once daily before a meal for 30 days 02/07 completed lansopra zole 30 mg oral capsule, delayed release( /EC);R ecorded Status: Recorded on: 11/02/19 12 3:44PM;D iscontin ued Status: Disconti nued on: 02/08/20 13 11:08AM; User: Edi Gaspar on: 03/01/20 12 Not Available Not Available Not Available promethaz ine 25 mg tablet take 1 tablet (25 mg) by oral route every 6 hours as needed for 10 days 07/18 completed Not Available Not Available Not Available losartan 25 mg tablet 07/18 completed Not Available Not Available Not Available dexametha sone sodium phosphate 4 mg/mL injection solution Inject 1 mL every day by intramus cular route. 05/11 completed Not Available Not Available Not Available oxycodone -acetamin ophen 7.5 mg-325 mg tablet 10/22 completed Not Available Not Available Not Available albuterol sulfate HFA 90 mcg/actua tion aerosol inhaler Inhale 1 puff every 4 hours by inhalati on route as needed, for shortnes s of breath. 07/13 completed Not Available Not Available Not Available ondansetr on 4 mg disintegr ating tablet 04/14 completed Not Available Not Available Not Available cefdinir 300 mg capsule 08/05 completed Not Available Not Available Not Available Augmentin 500 mg-125 mg tablet Take 1 tablet 3 times a day by oral route for 10 days. 08/05 completed Not Available Not Available Not Available naproxen 500 mg tablet Take 1 tablet twice a day by oral route as needed for 14 days. 07/09 completed Not Available Not Available Not Available amoxicill in 875 mg-potass ium clavulana te 125 mg tablet Take 1 tablet every 12 hours by oral route for 10 days. 07/18 completed Not Available Not Available Not Available tobramyci n 0.3 %-dexamet hasone 0.1 % eye drops,karsten pension 03/14 completed Not Available Not Available Not Available azithromy jesus 500 mg tablet 08/05 completed Not Available Not Available Not Available nitrofura ntoin monohydra te/macroc rystals 100 mg capsule 07/18 completed Not Available Not Available Not Available Index one po q 4 to 6 hours prn pain 03/05 completed norco 5/325;Re corded Status: Recorded on: 09/12/19 15 11:18AM; Disconti nued Status: Disconti nued on: 03/05/20 15 1:28PM;U ser: gored;Es t. Completi on: 09/17/19 15;Indic ation: - (-5) Not Available Not Available Not Available Flonase 1 spray bid 07/15 completed flonase; Recorded Status: Recorded on: 07/15/19 16 11:54AM; Disconti nued Status: Disconti nued on: 07/15/19 16 12:03PM; User: tara reis;Est. Completi on: 08/05/19 16;Indic ation: - (-5) Not Available Not Available Not Available Keflex 1 bid 07/15 completed keflex 500 mg;Recor ded Status: Recorded on: 07/15/19 16 11:54AM; Disconti nued Status: Disconti nued on: 07/15/19 16 12:03PM; User: tara reis;Est. Completi on: 07/25/19 16;Indic ation: - (-5) Not Available Not Available Not Available Zyrtec D 1 bid 07/15 completed zyrte d;Record ed Status: Recorded on: 07/15/19 16 11:54AM; Disconti nued Status: Disconti nued on: 07/15/19 16 12:03PM; User: tara reis;Est. Completi on: 07/22/19 16;Indic ation: - (-5) Not Available Not Available Not Available Prevacid 24Hr 15 mg capsule,d elayed release take 1 capsule (15 mg) by oral route once daily before a meal for 30 days 11/07 completed Prevacid 24Hr 15 mg oral capsule, delayed release( DR/EC);P rescribe Status: Prescrib ed on: 03/05/20 15 1:53PM;D iscontin ued Status: Disconti nued on: 11/08/19 16 1:00PM;U ser: gored;Es t. Completi on: 06/03/20 15;Pharm acyVcapof ied: 03/05/20 15 1:53PM Not Available Not Available Not Available lidocaine 5 % topical ointment 11/01 completed Not Available Not Available Not Available Flonase Allergy Relief 50 mcg/actua tion nasal spray,karsten pension inhale 1 puff by nasal route 2 times a day for 30 days 05/08 completed Not Available Not Available Not Available Vitals Date Recorded Body height Body mass index (BMI) Body weight Body temperature Heart rate Oxygen saturation Oxygen saturation in Arterial blood by Pulse oximetry Respiratory rate Pain severity - 0-10 verbal numeric rating [Score] - Reported Systolic And Diastolic Provider Name and Address Organization Details Last Updated DateTime 5 154.94 cm 40.6 kg/m2 00574.3 6 g 98 [degF] 75 /min 98 % 98 % 18 /min 0 110/78 mm[Hg] Clover Greenberg [place] - [facility] 5 08:51:01 Date Recorded Body height Body mass index (BMI) Body weight Body temperature Oxygen saturation Oxygen saturation in Arterial blood by Pulse oximetry Heart rate Respiratory rate Systolic And Diastolic Provider Name and Address Organization Details Last Updated DateTime 5 154.94 cm 40.1 kg/m2 20573.5 8 g 98.1 [degF] 98 % 98 % 84 /min 18 /min 136/82 mm[Hg] Marisa Rendons [place] - [facility] 5 17:03:53 Date Recorded Body height Respiratory rate Body mass index (BMI) Body weight Heart rate Oxygen saturation Oxygen saturation in Arterial blood by Pulse oximetry Systolic And Diastolic Provider Name and Address Organization Details Last Updated DateTime 4 154.94 cm 18 /min 41.2 kg/m2 85882.1 4 g 76 /min 98 % 98 % 144/86 mm[Hg] Marisa Rendons [place] - [facility] 4 08:46:51 Date Recorded Body height Body mass index (BMI) Body weight Oxygen saturation Oxygen saturation in Arterial blood by Pulse oximetry Respiratory rate Heart rate Systolic And Diastolic Provider Name and Address Organization Details Last Updated DateTime 4 154.94 cm 41.8 kg/m2 819086. 91 g 97 % 97 % 20 /min 66 /min 138/82 mm[Hg] Marisa Julietas [place] - [facility] 4 09:39:59 Date Recorded Body height Body mass index (BMI) Body weight Body temperature Heart rate Oxygen saturation Oxygen saturation in Arterial blood by Pulse oximetry Respiratory rate Pain severity - 0-10 verbal numeric rating [Score] - Reported Oxygen saturation Oxygen saturation in Arterial blood by Pulse oximetry Systolic And Diastolic Provider Name and Address Organization Details Last Updated DateTime 4 154.94 cm 41.6 kg/m2 97274.3 2 g 97.7 [degF] 78 /min 95 % 95 % 18 /min 9 92 % 92 % 118/82 mm[Hg] Clover Greenberg [place] - [facility] 4 15:15:40 Social History Question Answer Notes LastModified by Organizat ion Details LastModified Time Tobacco Smoking Status Never Smoker Hanane Rowley RN [address], [place], [address], [place] - [facility] 05/05/2016 15:14:00 Do You Have An Advance Directive? No Information n ot available 05/05/2016 Are You Blind Or Do You Have Difficulty Seeing? No [email or web address] Information n ot available 11/01/2017 What Is Your Level Of Caffeine Consumption? None Information not available 05/05/2016 In The 14 Days Before Symptom Onset, Have You Had Close Contact With A Laboratory-confirm ed COVID-19 While That Case Was Ill? No Information n ot available 12/09/2023 In The 14 Days Before Symptom Onset, Have You Had Close Contact With A Person Who Is Under Investigation For COVID-19 While That Person Was Ill? No Information not available 12/09/2023 Have You Been To An Area Known To Be High Risk For COVID-19? No Information not available 12/09/2023 Are You Deaf Or Do You Have Serious Difficulty Hearing? No [email or web address] Information not available 11/01/2017 What Type Of Diet Are You Following? REGULAR Information n ot available 05/05/2016 Have You Processed Blood Or Body Fluids From An Ebola Virus Disease Patient Without Appropriate PPE? No Information not available 12/09/2023 Do You Reside In Or Have You Traveled To An Area Where Ebola Virus Transmission Is Active? No Information not available 12/09/2023 What Is The Highest Grade Or Level Of School You Have Completed Or The Highest Degree You Have Received? [id number] Information not available 05/11/2024 Have There Been Any Changes To Your Family Or Social Situation? No Information no t available 12/09/2023 What Is The Fluoride Status Of Your Home? Unknown Information not available 05/11/2024 Have You Recently Or Are You Planning To Travel To An Area With Zika Virus? No Information not available 12/09/2023 Live Alone Or With Others? With Others Information not available 05/05/2016 Do You Have A Medical Power Of Wiping Rag Washer? No Information not available 05/11/2024 What Was The Date Of Your Most Recent Tobacco Screening? 07/13/2024 Information not available 07/13/2024 What Is Your Relationship Status? Information not available 05/05/2016 Do You Have Smoke And Carbon Monoxide Detectors In Your Home? Yes Information not available 12/09/2023 How Much Tobacco Do You Smoke? No [email or web address] Information not available 11/01/2017 Has Tobacco Cessation Counseling Been Provided? No Information not available 05/11/2024 How Many Years Have You Smoked Tobacco? 0 Information not available 11/01/2017 Do You Have Difficulty Walking Or Climbing Stairs? No [email or web address] Information not available 11/01/2017 Sex: Female Functional Status Question Answer Note LastModified by Organizat ion Details LastModified Time Do you use any illicit or recreational drugs? No Information not available 05/11/2024 Do you or have you ever used any other forms of tobacco or nicotine? No Information not available 05/11/2024 What is your level of alcohol consumption? None Information not available 05/05/2016 Are you currently employed? Yes Information not available 05/05/2016 Do you have transportation difficulties? No Information not available 05/11/2024 Are you able to walk independently without assistance or assistive devices? YESWOREST [email or web address] Information not available 11/01/2017 Do you have difficulty doing errands alone? No Information not available 11/01/2017 Are you able to care for yourself independently? Yes Information not available 05/05/2016 What is your occupation? [employer] Information not available 05/11/2024 Do you have difficulty dressing, bathing, grooming, or toileting? No [email or web address] Information not available 11/01/2017 Mental Status Question Answer Note LastModified by Organizat ion Details LastModified Time Do you feel stressed (tense, restless, nervous, or anxious, or unable to sleep at night)? [id number] Information not available 05/11/2024 Do you have difficulty concentrating, remembering or making decisions? No [email or web address] Information no t available 11/01/2017 Family History Relationship Description Onset Age of this Age Resolved Age Notes LastModified by Organization Details LastModified Time Unspecified Relation Cerebrovascu lar accident Not available 01/2016 15:16:06 Unspecified Relation Diabetes mellitus Not available 2015 15:16:13 Unspecified Relation Malignant neoplasm of lung Not available 2015 15:16:20 Medical History No medical history recorded. Gynecological History Statement/Question Response Menses Monthly N Date of Last Pap Smear Current Control Method Tubal Ligat ion Most Recent Mammogram Date of Last Colonoscopy LMP Obstetrics History GPAL:G 2 P 2 0 0 2 Type Value Full Term 2 Living 2 Total 2 Immunizations Vaccine Type Date Status Note Provider Name and Address Organization Details Recorded Time Influenza, split virus, quadrivalent, preservative 04/14/20 17 cancelled patient objection Not Available [facility] 07/15/2019 03:54:37 Tdap 04/14/20 17 cancelled patient objection Not Available [facility] 07/15/2019 03:54:44 COVID-19, mRNA, LNP-S, PF, 30 mcg/0.3 mL dose 07/08/19 22 completed Clover Greenberg null, [place] - [facility] 07/09/2023 09:50:11 COVID-19, mRNA, LNP-S, PF, 30 mcg/0.3 mL dose 10/26/19 21 completed Clover Greenberg null, [place] - [facility] 07/09/2023 09:50:11 COVID-19, mRNA, LNP-S, PF, 30 mcg/0.3 mL dose 11/23/19 21 completed Clover Greenberg null, [place] - [facility] 07/09/2023 09:50:11 Past Encounters Encounter ID Performer Location Encounter Start Date Encounter Closed Date Diagnosis/Indication Diagnosis SNOMED-CT Code Diagnosis ICD10 Code Diagnosis IMO Codes Diagnosis Note [id number] Sarah Grajeda [facility] [address] [place] [address] 05/05/2016 14:05:10 05/05/2016 15:55:12 Migraine 72345751 G43.294 [id number] Juliane Siegel [facility] [address] [address] 04/14/2017 16:13:57 04/14/2017 18:37:39 Active or passive immunization 994496396 Z23 Body mass index 40+ - severely obese 106125915 Z68.41 Pansinusitis 734998894 J 32.4 [id number] Juliane Robbin [address] [place] [address] 08/05/2017 09:35:24 08/05/2017 10:48:33 Body mass index 40+ - severely obese 365957141 Z68.41 Dysuria 74148347 R30.0 Pain in throat 464636157 R07.0 Urinary tr act infectious disease 47529005 N39.0 Bronchitis 76846156 J40 [id number] Sarah Grajeda [address] [place] [address] 11/01/2017 10:28:09 11/01/2017 11:27:28 Dysuria 14615073 R30.0 Vaginal irritation 65095 6004 N89.8 [id number] Sarah Grajeda[address] [place] [address] 03/14/2018 14:34:55 03/14/2018 16:11:53 Body mass index 40+ - severely obese 734071918 Z68.41 Obesity 687740456 E66.9 Cough 60432407 R05 Acute bronchitis 2893566 2 J20.9 [id number] Leandra Lobo [address] [place] [address] 07/18/2019 09:55:26 07/18/2019 10:44:08 Dysuria 32706142 R30.0 Urinary tr act infectious disease 51480827 N39.0 [id number] Leandra Lobo [address] [place] [address] 10/23/2019 13:31:39 10/23/2019 14:05:17 Elevated blood-pressure reading without diagnosis of hypertension 440743759 R03.0 Migraine 16489550 G43.90 [id number] Neela Castillo[address] [address] 07/09/2023 09:42:06 07/09/2023 10:19:07 Acute bronchitis 79226382 J20.9 return if worsening or no improvemen t [id number] Neela Castillo APRN [address] [address] 12/09/2023 09:30:44 12/09/2023 10:29:27 Migraine 72992574 G43.909 pt does not want any testing or labs at this time.instr ucted pt if symptoms do not improve or worsen she needs to go to ed tamy [id number] Neela Castillo HEMATOLOGY NURSE EDUCATOR [address] [address] 05/11/2024 08:32:51 05/11/2024 09:33:05 Viral upper respiratory tract infection [id number] J06.9 no sign of a bacterial infection. likely viral. viruses can take 7-14 days to run their course. nasal saline and bulb syringe to remove nasal drainage to help with congestion . monitor temp. Tylenol or Motrin as needed for pain or fever. encourage fluids, water, Gatorade, power aide, Pedialyte if /tod dler/child warm salt water gargles warm fluids sore throat lozenges sleep elevated humidifier /vaporizer follow up immediatel y for new or worsening symptoms or no noticeable improvemen t over the next 48-72 hours Acute bronchitis 3566494 2 J20.9 return if worsening or no improvemen t [id number] Neela Castillo APRN [address] [address] 05/18/2024 08:54:36 05/18/2024 10:04:31 Chest pain 64861870 R07.9 sent to ed for eval, family is taking her pov- pt declined ems [id number] Neela Castillo [address] [address] 06/19/2024 14:49:12 06/19/2024 16:04:35 Acute suppurative otitis media with spontaneous rupture of ear drum 34659287 H66.011 follow up ion 2 weeks Acute left otitis media 536443707 H66.92 Acute bronchitis 4466141 2 J20.9 return if worsening or no improvemen t return [id number] Neela Castillo APRN [address] [address] 07/13/2024 08:34:23 07/13/2024 09:19:54 Middle ear effusion 3095112864 H74.8X9 will do trial of flonase if no improvemen t will refer to ent [id number] Neela Catsillo APRN [address] [address] 05/08/2025 16:49:40 05/08/2025 17:26:07 Chest pain 18565364 R07.9 [id number] sent to ed for eval, family is taking her pov- pt declined ems Nausea and vomiting 1693 1999 R11.2 [id number] Health Concerns Section Related Observation LastModified by Organization Detai ls LastModified Time None Recorded Concern Status LastModified by Organization Details LastModified Time None Recorded Advance Directives Directive N: Payers Insurance Date Sequence Insurance Name Policy Number Policy [place] Covered Member ID [place] Member ID Guarantor Name 05/08/2025 1 [facility] [id number] [facility] [id number] [facility] 07/09/2023 1 [place] [id number] Kim Gabriel [id number] [facility] 07/09/2023 1 [place] [id number] Kim Evans [facility] [id number] Kim Evans [facility] 04/15/2017 1 *SELF PAY* Ki josiah Gabriel Notes Date Note Type Note Provider Name and Address Organization Details Recorded Time 05/11/2024 text/html ROS as noted in the HPI 54 year old female who presents to the office today with concerns of cough, chest congestion,sore throat, dizziness, body achespain at times in right ear Neela Castillo APRN [address], [place], [address], [place] - [facility] 05/11/2024 09:27:15 05/18/2024 text/html ROS as noted in the [facility] 54 year old female who presents to the office today with concerns of chest pain with bronchitis. pt states she is having a sharp pain mid chest and pressure. pt states she feels like she is having a heart attack. states soa. Neela CorreiaRENETTA maldonado [address], [place], [address], [place] - [facility] 05/18/2024 10:00:21 06/19/2024 text/html ROS as noted in the HPI 54 yr old male presents for cough,bilateral ear pain. Gabyjocelyn RENETTA maldonado [address], [place], [address], [place] - [facility] 06/19/2024 16:24:27 07/13/2024 text/html ROS as noted in the [facility] 54 yr old female presents for a recheck of right ear. pt states it still fill like its got fluid in it. pt states the pain improved Gabyhelenze CorreiaRENETTA maldonado [address], [place], [address], [place] - [facility] 07/13/2024 09:37:45 05/08/2025 text/html ROS as noted in the [facility] 55 year old female who presents to the office today with concerns ofchest pain, pressure, sweaty and nausea started on Wednesdaypt states she had diarrhea and vomiting fever last week Gabyjocelyn RENETTA maldonado [address], [place], [address], [place] - [facility] 05/08/2025 18:06:37 OBGyn Episode No OBEpisode recorded.
--- OUTSIDE RECORDS SUMMARY | 2025-05-08 18:28 | XMS_ITS | Clinical Summary ---
Author Organization [facility] Address [address] [place] [address] Care Team Providers Care Virtual Classroom Manager Name Role Phone Diana Michelle APRN Primary Care Provider +1- [phone] Family History Medical History Relation Name Comments Hyperlipidemia Father Hypertension Father Lung cancer Father Cardiac disorder Mother Diabetes Mother Hyperlipidemia Mother Kidney disease Mother Stroke Mother Relation Name Status Comments Father Mother Social History Tobacco Use Types Packs/Day Years Used Date Smoking Tobacco: Never Alcohol Use Standard Drinks/Week Comments No 0 (1 standard drink = 0.6 oz pur e alcohol) Comments Unknown Sex and Gender Information Value Date Recorded Sex Assigned at Not on file Legal Sex Female 6:06 PM EDT Gender Identity Not on file Sexual Orientation Not on file Last Filed Vital Signs Vital Sign Reading Time Taken Comments Blood Pressure - - Pulse - - Temperature - - Respiratory Rate - - Oxygen Saturation - - Inhaled Oxygen Concentration - - Weight 95.3 kg (210 lb 0.2 oz) 10/01/2016 3:11 P M EDT Height 165.1 cm (5' 5 ) 10/01/2016 3:11 PM EDT Body Mass Index 34.95 10/01/2016 3:11 PM EDT Plan of Treatment Not on file Care Teams Virtual Classroom Manager Relationship Specialty Start Date End Date Diana Michelle APRN [address] [place] [address] PCP - General 11/08/20
--- OUTSIDE RECORDS SUMMARY | 2025-05-08 18:28 | XMS_ITS | Continuity of Care Document ---
Author Organization [facility] Address [address] [place] [address] Assessment No assessment recorded. Plan of Treatment Reminders Order Date Submit Date Provider Last Modified By Organization Details Last Modified Time Details Appointments Establish ed Patient 20 2024 05:00P M Neela Castillo APRN Not available Not available Not available Lab None recorded. Referral None recorded. Procedures None recorded. Surgeries None recorded. Imaging electroca rdiogram 2024 025 [facility], [address] [place] [address], [address], 05/08/2025 18:19:58 Medication Orders None recorded. Patient TargetsNo targets recorded. Patient InstructionsNo instructions recorded. Reason for Referral None Reported. Results Created Date Observation Date Name Description Value Unit Range Abnormal Flag Note LastModifiedBy Organization Detail LastModifiedTime 05/08/20 25 05/08/2025 joshua morocho am No observ ation record ed. [address], [address], 05/08/2025 18:20:13 Result Notes None recorded. Problems Name Problem SNOMED Code Status Onset Date Resolution Date Notes Provider Name and Address Organization Details Recorded Time Migraine [id number] Active 016 Hanane Rowley RN [address], [place], [address] , [facility] 05/05/2016 15:13:54 Problem Notes None recorded. Procedures Surgical History Date Name Laterality Status Provider Name and Address Organization Details Recorded Time 4 Nebulizer tx completed Neela Castillo APRN [address], [place], [address], [facility] - [facility] 06/19/2024 16:23:53 0 Systolic B/P less than 130 mm Hg completed Crystal Shelly [place] - [facility] 07/18/2019 10:09:28 0 Diastolic B/P less than 80 mm Hg completed Crystal Shelly [place] - [facility] 07/18/2019 10:09:31 Tubal Ligation completed Hanane Rowley RN [address], [place], [address], [facility] - [facility] 05/05/2016 15:17:25 Imaging Results None [...] ser: tara reis;Est. Completi on: 07/25/19 16;Pharm acyVerif ied: 07/15/19 16 12:08PM Not Available Not [...] oral tablet;R ecorded Status: Recorded on: 09/12/19 15 10:59AM; Disconti [...] n 0.3 %-dexamet hasone 0.1 % eye drops,[facility] 03/14 completed Not Available Not Available Not Available azithromy jesus 500 mg tablet 08/05 completed Not Available Not Available Not Available nitrofura ntoin monohydra te/macroc rystals 100 mg capsule 07/18 completed Not Available Not Available Not Available [place] one po q 4 to 6 hours [...] nued on: 07/15/19 16 12:03PM; User: tara jacobsonEst. Completi on: 08/05/19 16;Indic ation: - (-5) Not Available Not Available Not Available Keflex 1 bid 07/15 completed keflex 500 mg;Recor ded Status: Recorded on: 07/15/19 16 11:54AM; Disconti nued Status: Disconti nued on: 07/15/19 16 12:03PM; User: tara jacobsonEst. Completi on: 07/25/19 16;Indic ation: - (-5) Not Available Not Available Not Available Zyrtec D 1 bid 07/15 completed zyrtec d;Record ed Status: Recorded on: 07/15/19 16 [...] ser: gored;Es t. Completi on: 06/03/20 15;Pharm acyVerif ied: 03/05/20 15 1:53PM Not Available Not [...] Updated DateTime 5 154.94 cm 40.1 kg/m2 51069.5 8 g 98.1 [degF] 98 % 98 % 84 /min 18 /min 136/82 mm[Hg] Marisa Stears [place] - [facility] 5 17:03:53 Social History Question Answer Notes LastModified by Organizat ion Details LastModified Time Tobacco Smoking Status Never Smoker Hanane Rowley RN [address], [place], [address], [place] - [facility] 05/05/2016 15:14:00 Do You Have An Advance Directive? No Information n ot available 05/05/2016 Are You Blind Or Do You Have Difficulty Seeing? No [email or web address] Information n ot available 11/01/2017 What Is [...] Do You Have Serious Difficulty Hearing? No [email or web address] Information not available 11/01/2017 What Type Of [...] Or The Highest Degree You Have Received? [id number] Information not available 05/11/2024 Have There Been [...] Do You Have A Medical Power Of Satellite Communications Engineer? No Information not available 05/11/2024 What Was The Date Of Your Most Recent Tobacco Screening? 07/13/2024 Information not available 07/13/2024 What Is Your Relationship Status? Information not available 05/05/2016 Do You Have Smoke And Carbon Monoxide Detectors In Your Home? Yes Information not available 12/09/2023 How Much Tobacco Do You Smoke? No [email or web address] Information not available 11/01/2017 Has Tobacco Cessation Counseling Been Provided? No Information not available 05/11/2024 How Many Years Have You Smoked Tobacco? 0 [email or web address] Information not available 11/01/2017 Do You Have Difficulty Walking Or Climbing Stairs? No [email or web address] Information not available 11/01/2017 Sex: Female Functional [...] independently without assistance or assistive devices? YESWOREST [email or web address] Information not available 11/01/2017 Do you have difficulty doing errands alone? No [email or web address] Information not available 11/01/2017 Are you able to care for yourself independently? Yes Information not available 05/05/2016 What is your occupation? [employer] Information not available 05/11/2024 Do you have difficulty dressing, bathing, grooming, or toileting? No [place] [address] Information not available 11/01/2017 Mental Status Question Answer Note LastModified by Organizat ion Details LastModified Time Do you feel stressed (tense, restless, nervous, or anxious, or unable to sleep at night)? [id number] Information not available 05/11/2024 Do you have difficulty concentrating, remembering or making decisions? No [place] [address] Information no t available 11/01/2017 Family History [...] 04/14/20 17 cancelled patient objection Not [facility] 03:54:37 Tdap 04/14/20 17 cancelled patient objection Not Available On license of [facility] 07/15/2019 03:54:44 COVID-19, mRNA, LNP-S, PF, 30 mcg/0.3 mL dose 07/08/19 22 completed [place], [place] - [facility] 07/09/2023 09:50:11 COVID-19, mRNA, LNP-S, PF, 30 mcg/0.3 mL dose 10/26/19 21 completed [place] - [facility] 07/09/2023 09:50:11 COVID-19, mRNA, LNP-S, PF, 30 mcg/0.3 mL dose 11/23/19 21 completed [facility], [place] - [facility] 07/09/2023 09:50:11 Past Encounters Encounter ID Performer Location Encounter Start Date Encounter Closed Date Diagnosis/Indication Diagnosis SNOMED-CT Code Diagnosis ICD10 Code Diagnosis IMO Codes Diagnosis Note [id number] Neela Castillo APRN [address] [address] 05/08/2025 16:49:40 05/08/2025 17:26:07 Chest pain 17446658 R07.9 [id number] sent to ed for eval, family is taking her pov- pt declined ems Nausea and vomiting 1692 1999 R11.2 [id number] Health Concerns Section Related Observation LastModified by Organization Detai ls LastModified Time None Recorded Concern Status LastModified by Organization Details LastModified Time None Recorded Payers Encounter Date Sequence Insurance Name Policy Number Policy Trnocoso Covered Member ID [place]ron[place] Member ID Guarantor Name 05/08/2025 1 [facility] [id number] Kim J [facility] [id number] Kim Gabriel Notes Date Note Type Note Provider Name and Address Organization Details Recorded Time 05/08/2025 text/html ROS as noted in the HPI 55 year old female who presents to the office today with concerns ofchest pain, pressure, sweaty and nausea started on Wednesdaypt states she had diarrhea and vomiting fever last week Neela Castillo APRN [address], [place], [address], [place] - [facility] 05/08/2025 18:06:37 OBGyn Episode No OBEpisode recorded.
--- NOTE | 2025-05-08 18:29 | CT_ITS ---
PROCEDURE INFORMATION: Exam: CT Abdomen And Pelvis With Contrast Exam date and time: 05/08/2025 7:14 PM Age: 55 years old Clinical indication: Abdominal pain TECHNIQUE: Imaging protocol: Computed tomography of the abdomen and pelvis with contrast. 3D rendering (Not supervised by radiologist): MIP and/or 3D reconstructed images were created by the technologist. Radiation optimization: All CT scans at this facility use at least one of these dose optimization techniques: automated exposure control; mA and/or kV adjustment per patient size (includes targeted exams where dose is matched to clinical indication); or iterative reconstruction. Contrast material: ISOVUE; Contrast volume: 70 ml; Contrast route: IV; COMPARISON: CT ABDOMEN PELVIS WO CON 11/27/2021 12:24 PM FINDINGS: Liver: Normal. No mass. Gallbladder and biliary ducts: Normal. No calcified stones. No ductal dilation. Pancreas: Normal. No ductal dilation. Spleen: Normal. No splenomegaly. Adrenal glands: Normal. No mass. Kidneys and ureters: Mild right renal scarring. Nonobstructing right renal calculus. Stomach and bowel: Unremarkable. No obstruction. No mucosal thickening. Appendix: Unremarkable appendix. Intraperitoneal space: Unremarkable. No free air. No significant fluid collection. Vasculature: Unremarkable. No abdominal aortic aneurysm. Lymph nodes: Unremarkable. No enlarged lymph nodes. Urinary bladder: Unremarkable as visualized. Reproductive: Bilateral tubal ligation clips. Uterine fibroids. Endometrial thickness measures 7 mm, which is abnormal for a postmenopausal patient. Bones/joints: Unremarkable. No acute fracture. Soft tissues: Tiny fat containing umbilical hernia. Other findings: Please see separate report for CT chest. IMPRESSION: 1. No acute intra-abdominal or intrapelvic organ injury. 2. Endometrial thickness measures 7 mm, which is abnormal for a postmenopausal patient. Recommend outpatient follow-up with ENROLLMENT SPECIALIST to exclude hyperplasia/malignancy. 3. Nonobstructing right renal calculus.
[2025-05-08 18:31] VITALS: BP 149/79; PULSE 65; RESP 13; O2SAT 99
[2025-05-08 18:32] LABS: Hematocrit 40.3 % (37.0-47.0); Hemoglobin 13.5 g/dL (12.2-16.2); Immature Granulocytes % 0.3 %; Mean Corpuscular HGB Conc 33.5 g/dL (31.8-35.4); Mean Corpuscular Hemoglobin 29.3 pg (27.0-31.2); Mean Corpuscular Volume 87.4 fl (81-99); Nucleated Red Blood Cells % 0 %; Platelet Count 369 K/mm3 (142-424); Red Blood Count 4.61 M/mm3 (4.20-5.40); Red Cell Distribution Width-SD 39.7 fL; White Blood Count 10.9 K/mm3 (4.8-10.8)
[2025-05-08 18:33] LABS: Lactate Venous 1.0 mmol/L (0.4-2.0); VBG HCO3 24.4 mmol/L (23-30); VBG PCO2 43.5 mmol/L (35-51); VBG PH 7.37 mmol/L (7.31-7.41); VBG PO2 49.0 mmol/L (28-40)
[2025-05-08 18:34] LABS: D-Dimer 0.77 ug/mL (0.0-0.5)
[2025-05-08 18:35] LABS: Coronavirus 19, PCR Not Detected (NotDetected); Influenza A, PCR Not Detected (NotDetected); Influenza B, PCR Not Detected (NotDetected)
--- NOTE | 2025-05-08 18:37 | CT_ITS ---
PROCEDURE INFORMATION: Exam: CTA Chest With Contrast Exam date and time: 05/08/2025 7:14 PM Age: 55 years old Clinical indication: Shortness of breath; Additional info: Short of breath TECHNIQUE: Imaging protocol: Computed tomographic angiography of the chest with contrast. Exam focused on the arteries. 3D rendering (Not supervised by radiologist): MIP and/or 3D reconstructed images were created by the technologist. Radiation optimization: All CT scans at this facility use at least one of these dose optimization techniques: automated exposure control; mA and/or kV adjustment per patient size (includes targeted exams where dose is matched to clinical indication); or iterative reconstruction. Contrast material: ISOVUE; Contrast volume: 70 ml; Contrast route: INTRAVENOUS (IV); COMPARISON: CT ANGIO CHEST PE PROTOCOL 05/08/2025 7:14 PM FINDINGS: Pulmonary arteries: Evaluation of the pulmonary arteries is limited to the segmental arterial level due to poor bolus timing and motion artifact. Aorta: Unremarkable. No aortic aneurysm. No aortic dissection. Trachea: Tracheal diverticulum. Lungs: Mild scarring and atelectasis in the lower lungs. Pleural spaces: Unremarkable. No pneumothorax. No pleural effusion. Heart: Unremarkable. No cardiomegaly. No pericardial effusion. Lymph nodes: Unremarkable. No enlarged lymph nodes. Bones/joints: Old bilateral rib fractures. Soft tissues: Unremarkable. Other findings: Please see separate report for abdomen/pelvis. Stigmata of old granulomatous disease. IMPRESSION: Evaluation of the pulmonary arteries is limited to the segmental arterial level due to poor bolus timing and motion artifact. Within the limitations of the study, no pulmonary emboli.
[2025-05-08] MEDS: IPRATROPIUM/ALBUTEROL 3 ML NEB 9 ML IH (18:40)
[2025-05-08] MEDS: MAGNESIUM SULFATE IN WATER 2 GM/50 ML PIGGYBACK IV (18:41)
[2025-05-08 18:44] LABS: Alanine Aminotransferase 17 U/L (12-78); Albumin Level 4.3 g/dl (3.5-5.0); Albumin/Globulin Ratio 1.1 (1.1-1.8); Alkaline Phosphatase 131 U/L (38-126); Anion Gap 8.5 mEq/L (5-15); Aspartate Amino Transferase 34 U/L (14-36); Bilirubin,Total 0.7 mg/dl (0.2-1.3); Blood Urea Nitrogen 24 mg/dl (7-17); Calcium 9.3 mg/dl (8.4-10.2); Carbon Dioxide 27 mmol/L (22.0-30.0); Chloride 104 mmol/L (98-107); Creatinine Clearance Estimated 42 mL/min (50-200); Creatinine,Serum 0.90 mg/dl (0.52-1.04); Estimated Glomerular Filt Rate 65 ml/min (>60); GFR (African American) 78 ML/MIN (>60); Globulin 3.8 g/dL (1.3-3.2); Glucose 87 mg/dl (74-100); Lipase 106 U/L (23-300); Magnesium 2.0 mg/dl (1.6-2.3); Potassium 4.5 mmoL/L (3.5-5.1); Sodium 135 mmol/L (136-145); Total Protein,Serum 8.1 g/dl (6.3-8.2)
[2025-05-08] MEDS: ASPIRIN 325MG TABLET 325 MG PO (18:44)
[2025-05-08] MEDS: FAMOTIDINE 20MG/2ML VIAL 20 MG IV (18:47)
[2025-05-08 18:56] LABS: Activated Partial Thrombo Time 25.9 seconds (22.8-30.6); INR 0.92 (0.9-1.1); NT Pro Brain Natriuretic Pep. 111 pg/mL (0-125); Prothrombin Time 10.3 seconds (10.1-12.5)
[2025-05-08 19:05] LABS: Troponin I < 0.01 ng/ml (0.00-0.034)
[2025-05-08] MEDS: 0.9 % SODIUM CHLORIDE 50 ML VIAL IV (19:14)
[2025-05-08] MEDS: SODIUM CHLORIDE 0.9% 10ML SYR (RAD ONLY) 10 ML IV (19:15)
[2025-05-08] MEDS: IOPAMIDOL-370 (76%);100ML BOTTLE 70 ML IV (19:15)
[2025-05-08 19:32] LABS: Hepatitis C Ab Qual. W/ RFX NEGATIVE (Negative)
[2025-05-08 20:32] VITALS: BP 111/66; PULSE 79; RESP 16; TEMP 36.6; O2SAT 95
== END 2025-05-08 20:44 | disposition home or self-care (01) ==
PROVIDERS: Nurse Practitioner; Emergency Provider Student in an Organized Health Care Education/Training Program; PCP Nurse Practitioner Family
DX: R07.89 Other chest pain (principal)
CPT/HCPCS: 71045; 71275; 74177; 80053; 82803; 83690; 83735; 83880; 84484; 85025; 85378; 85610; 85730; 86803; 87389; 87636; 93005; 96365; 96375; 99285; J1308; J3475; Q9967

== ENCOUNTER 2025-05-17 10:17 | Outpatient (CLI) | payer OTHER, SELFPAY ==
--- NOTE | 2025-05-17 10:30 | US_ITS ---
PROCEDURE: US TRANSVAGINAL CLINICAL INDICATION: Thickened endometrium COMPARISON: CT CT ABDOMEN PELVIS W CON from 05/08/2025 US US GALLBLADDER from 05/17/2025 FINDINGS: Transvaginal sonographic images of the pelvis were obtained. UTERUS: 8.3cm x 4.5cmx 3.7 cm with a combined endometrial thickness of 9mm. She has a 1.8 cm nabothian cyst in the cervix. There is a posterior fibroid measuring 3.0 cm x 2.1 cm x 2.5 cm. LEFT OVARY: 2.1cmx1.5 cmx1.9cm with a volume of 3.1ml. RIGHT OVARY: 1.5 cmx 1.0cmx1.4cm with a volume of 1.1ml. Both ovaries are seen and appear normal. Doppler flow to both ovaries are seen. There is no fluid in the cul-de-sac. IMPRESSION: 1. Anteverted uterus normal in shape and size. The endometrium is thickened measuring 9 mm. 2. There is a 3 cm posterior fibroid and a 1.8 cm nabothian cyst in the cervix. 3. Both ovaries are seen and appear atrophic. 4. No fluid in the cul-de-sac. Dictated by: Chadd Beaver MD 05/17/2025 15:23 Chadd Beaver MD in OV 05/17/2025 15:23
--- OUTSIDE RECORDS SUMMARY | 2025-05-17 10:56 | XMS_ITS | Clinical Summary ---
Author Organization [facility] Address [address] [place] [address] Care Team Providers Care Tetryl Nitrator Operator Name Role Phone Diana Michelle APRN Primary Care Provider +1- [phone] Family History Medical History Relation Name Comments [...] of Treatment Not on file Care Teams Tetryl Nitrator Operator Relationship Specialty Start Date End Date Diana Michelle APRN [address] [place] [address] PCP - General 11/08/20
--- OUTSIDE RECORDS SUMMARY | 2025-05-17 10:56 | XMS_ITS | Clinical Summary ---
Author Organization [facility] Address [address] [place] [address] Phone Care Team Providers Care Expansion Joint Builder Name Role Phone Declan Torres MD Primary Care Provider + [phone] Social History Tobacco Use Types Packs/Day Years [...] EDT Impressions 10/30/2021 7:43 AM EDT Negative (YRH-Xiwxosxo-6) ~ RECOMMENDATION: Routine screening mammogram in 1 [...] the next mammogram, in accordance with the [employer] and the Society of Breast Imaging recommendations. Narrative 10/30/2021 7:43 AM EDT Procedure:MM MAMMO DIGITAL MICHAEL SCREEN BILAT ~ Reason for exam: screening, asymptomatic. Z12.31-Encounter for screening mammogram for malignant neoplasm of eatqli-NEQ-37-CM ~ MM MAMMO DIGITAL MICHAEL SCREEN BILAT [...] for screening mammogram for malignant neoplasm of lxlbcy-FUU-46-CM ~ MM MAMMO DIGITAL MICHAEL SCREEN BILAT Bilateral CC and MLO view(s) were taken. There are scattered fibroglandular densities. Prior study comparison: Compared with prior studies the most recentbeing 05/10/14, 04/14/12 No mammographic evidence of malignancy. ~ IMPRESSION: Negative (PYM-Cdppaxbp-7) ~ RECOMMENDATION: Routine screening mammogram in 1 [...] the next mammogram, in accordance with the [employer] and the Society of Breast Imaging recommendations. us Carlito Carlton MD IMG MAMMOGRAPHY ORDERABLES Priya l Result from Last 3 Months or Most Recently Relevant to Health Maintenance Insurance [facility] PPO Care Teams Expansion Joint Builder Relationship Specialty Start Date End Date Declan Torres MD [address] [place] [address] PCP - General 03/17/10
--- NOTE | 2025-05-17 11:00 | US_ITS ---
FINAL REPORT TECHNIQUE: Ultrasound images of the right upper quadrant were obtained, specifically the gallbladder. CLINICAL HISTORY: Upper abdominal pain COMPARISON: None FINDINGS: GALLBLADDER ULTRASOUND Limited images of the liver parenchyma demonstrate mild fatty infiltration. The gallbladder is well visualized and the wall appears normal. There are no gallstones. Common duct is normal. IMPRESSION: Mild fatty liver; otherwise, unremarkable gallbladder ultrasound. Reviewed, Interpreted and Dictated by Joce Luevano MD Transcribed by Leanna Barnett Authenticated and [facility]
== END 2025-05-17 23:59 | disposition home or self-care (01) ==
LOC: RAD 10:18
PROVIDERS: PCP Nurse Practitioner Family; Visit Provider Nurse Practitioner Obstetrics & Gynecology
DX: K76.0 Fatty (change of) liver, not elsewhere classified (principal); D25.9 Leiomyoma of uterus, unspecified; N88.8 Other specified noninflammatory disorders of cervix uteri; N83.312 Acquired atrophy of left ovary; N83.311 Acquired atrophy of right ovary; R93.89 Abnormal findings on diagnostic imaging of other specified body structures; R10.10 Upper abdominal pain, unspecified; Z78.0 Asymptomatic menopausal state
CPT/HCPCS: 76705; 76830

== ENCOUNTER 2025-05-29 14:23 | Outpatient (CLI) | payer OTHER, SELFPAY ==
--- OUTSIDE RECORDS SUMMARY | 2025-05-29 14:33 | XMS_ITS | Clinical Summary ---
Author Organization [facility] Address [address] [place] [address] Phone Care Team Providers Care Meat Pumper Name Role Phone Declan Torres MD Primary Care Provider + [phone] Social History Tobacco Use Types Packs/Day Years [...] EDT Impressions 10/30/2021 7:43 AM EDT Negative (KWL-Dbfgmjop-8) ~ RECOMMENDATION: Routine screening mammogram in 1 [...] the next mammogram, in accordance with the [place] [employer] and the Society of Breast Imaging recommendations. Narrative 10/30/2021 7:43 AM EDT Procedure:MM MAMMO DIGITAL MICHAEL SCREEN BILAT ~ Reason for exam: screening, asymptomatic. Z12.31-Encounter for screening mammogram for malignant neoplasm of ysxblh-BBR-80-CM ~ MM MAMMO DIGITAL MICHAEL SCREEN BILAT [...] for screening mammogram for malignant neoplasm of zlkgxf-OIL-51-CM ~ MM MAMMO DIGITAL MICHAEL SCREEN BILAT Bilateral CC and MLO view(s) were taken. There are scattered fibroglandular densities. Prior study comparison: Compared with prior studies the most recentbeing 05/10/14, 04/14/12 No mammographic evidence of malignancy. ~ IMPRESSION: Negative (NIK-Rrljmoon-5) ~ RECOMMENDATION: Routine screening mammogram in 1 [...] the next mammogram, in accordance with the [place] and the Society of Breast Imaging recommendations. us Carlito Carlton MD IMG MAMMOGRAPHY ORDERABLES Priya l Result from Last 3 Months or Most Recently Relevant to Health Maintenance Insurance [facility] PPO Care Teams Meat Pumper Relationship Specialty Start Date End Date Declan Torres MD [address] [place] [address] PCP - General 03/17/10
--- OUTSIDE RECORDS SUMMARY | 2025-05-29 14:33 | XMS_ITS | Clinical Summary ---
Author Organization [facility] Address [address] [place] [address] Care Team Providers Care Deer Farm Worker Name Role Phone Diana Michelle APRN Primary Care Provider +1- [phone] Family History Medical History Relation Name Comments [...] of Treatment Not on file Care Teams Deer Farm Worker Relationship Specialty Start Date End Date Diana Michelle APRN [address] [place] [address] PCP - General 11/08/20
== END 2025-05-29 23:59 | disposition home or self-care (01) ==
LOC: LAB 14:23
PROVIDERS: PCP Nurse Practitioner Family; Visit Provider Internal Medicine
DX: R69 Illness, unspecified (principal)

== ENCOUNTER 2025-05-30 08:23 | Outpatient (CLI) | payer OTHER, SELFPAY ==
--- OUTSIDE RECORDS SUMMARY | 2025-05-30 08:26 | XMS_ITS | Clinical Summary ---
Author Organization [facility] Address [address] [place] [address] Care Team Providers Care Haunted History Tour Guide Name Role Phone Diana Michelle APRN Primary Care Provider +1- [phone] Family History Medical History Relation Name Comments [...] of Treatment Not on file Care Teams Haunted History Tour Guide Relationship Specialty Start Date End Date Diana Michelle APRN [address] [place] [address] PCP - General 11/08/20
--- OUTSIDE RECORDS SUMMARY | 2025-05-30 08:26 | XMS_ITS | Clinical Summary ---
Author Organization [facility] Address [address] [place] [address] Phone Care Team Providers Care Home Economist Name Role Phone Declan Torres MD Primary Care Provider + [phone] Social History Tobacco Use Types Packs/Day Years [...] EDT Impressions 10/30/2021 7:43 AM EDT Negative ([id number]) ~ RECOMMENDATION: Routine screening mammogram in 1 [...] the next mammogram, in accordance with the [employer] and the [employer] of Breast Imaging recommendations. Narrative 10/30/2021 7:43 AM EDT Procedure:MM MAMMO DIGITAL MICHAEL SCREEN BILAT ~ Reason for exam: screening, asymptomatic. Z12.31-Encounter for screening mammogram for malignant neoplasm of [id number] ~ MM MAMMO DIGITAL MICHAEL SCREEN BILAT [...] for screening mammogram for malignant neoplasm of [id number] ~ MM MAMMO DIGITAL MICHAEL SCREEN BILAT Bilateral CC and MLO view(s) were taken. There are scattered fibroglandular densities. Prior study comparison: Compared with prior studies the most recentbeing 05/10/14, 04/14/12 No mammographic evidence of malignancy. ~ IMPRESSION: Negative ([id number]-[id number]-1) ~ RECOMMENDATION: Routine screening mammogram in 1 [...] the next mammogram, in accordance with the [employer] and the Society of Breast Imaging recommendations. us Carlito Carlton MD IMG MAMMOGRAPHY ORDERABLES Priya l Result from Last 3 Months or Most Recently Relevant to Health Maintenance Insurance [facility] PPO Care Teams Home Economist Relationship Specialty Start Date End Date Declan Torres MD [id number] [place] [id number] PCP - General 03/17/10
[2025-05-30 08:32] LABS: Microscopic, Urine URINE MICROSCOPIC (MICROSCOPIC)
[2025-05-30 09:23] LABS: Hematocrit 40.0 % (37.0-47.0); Hemoglobin 12.6 g/dL (12.2-16.2); Immature Granulocytes % 0.3 %; Mean Corpuscular HGB Conc 31.5 g/dL (31.8-35.4); Mean Corpuscular Hemoglobin 28.4 pg (27.0-31.2); Mean Corpuscular Volume 90.3 fl (81-99); Nucleated Red Blood Cells % 0 %; Platelet Count 315 K/mm3 (142-424); Red Blood Count 4.43 M/mm3 (4.20-5.40); Red Cell Distribution Width-SD 42.2 fL; White Blood Count 6.8 K/mm3 (4.8-10.8)
[2025-05-30 09:29] LABS: Bilirubin,Urine Negative (Negative); Color,Urine YELLOW (Yellow); Glucose,Urine (UA) Negative (Negative); Ketones,Urine Negative (Negative); Leukocyte Esterase,Urine Negative (Negative); PH,Urine 6.0 (5.0-8.5); Protein,Urine Negative (Negative); Specific Gravity, Urine >= 1.030 (1.005-1.030); Urobilinogen,Urine 0.2 EU/dl (0.2)
[2025-05-30 09:45] LABS: Albumin Level 3.9 g/dl (3.5-5.0); Bacteria,Urine Trace /lpf; Chloride 107 mmol/L (98-107); Mucus,Urine 2+ /lpf; Sodium 143 mmol/L (136-145); Squamous Epithelial Cell,Urine Occasional #/hpf (0-5); WBC,Urine Occasional #/hpf (0-3)
[2025-05-30 09:46] LABS: Potassium 4.4 mmoL/L (3.5-5.1)
[2025-05-30 09:48] LABS: Alanine Aminotransferase 20 U/L (12-78); Alkaline Phosphatase 119 U/L (38-126); Anion Gap 13.4 mEq/L (5-15); Aspartate Amino Transferase 28 U/L (14-36); Bilirubin,Direct 0.0 mg/dl (0.0-0.4); Bilirubin,Indirect 0.9 mg/dL (0.0-0.9); Bilirubin,Total 0.9 mg/dl (0.2-1.3); Bilirubin,Unconjugated 0.9 mg/dL (0.0-1.1); Blood Urea Nitrogen 19 mg/dl (7-17); Carbon Dioxide 27 mmol/L (22.0-30.0); Creatinine,Serum 0.80 mg/dl (0.52-1.04); Estimated Glomerular Filt Rate 74 ml/min (>60); GFR (African American) 89 ML/MIN (>60); Total Protein,Serum 6.8 g/dl (6.3-8.2)
[2025-05-30 09:49] LABS: Calcium 8.6 mg/dl (8.4-10.2); Glucose 74 mg/dl (74-100)
[2025-05-30 09:54] LABS: C-Reactive Protein 18.2 mg/L (0-4)
[2025-05-30 09:57] LABS: NT Pro Brain Natriuretic Pep. 203 pg/mL (0-125)
[2025-05-30 10:05] LABS: Free T4 (Free Thyroxine) 0.88 ng/dl (0.78-2.19)
[2025-05-30 10:19] LABS: Thyroid Stimulating Hormone 1.12 uIU/mL (0.465-4.68)
[2025-05-30 23:31] LABS: C. difficile PCR (HMH) Negative (Negative)
[2025-05-31 15:13] LABS: Cortisol,AM 8.9 ug/dL (6.2-19.4)
== END 2025-05-30 23:59 | disposition home or self-care (01) ==
LOC: LAB 08:23
PROVIDERS: PCP Nurse Practitioner Family; Visit Provider Internal Medicine
DX: R19.7 Diarrhea, unspecified (principal); R10.84 Generalized abdominal pain; R11.0 Nausea; R39.9 Unspecified symptoms and signs involving the genitourinary system
CPT/HCPCS: 36415; 80048; 80076; 81001; 82533; 83880; 84439; 84443; 85025; 85651; 86140; 87045; 87493